=== PATIENT | male | born 1970 | race Caucasian/White ===

== ENCOUNTER 2017-09-02 18:38 | Inpatient (IN) | payer BC, OTHER ==
[~2017-09-02] VITALS: Ht 175.3 cm; Wt 66.2 kg
[~2017-09-02 18:38] MED LIST: ACETAMINOP325 MG/10 PO; FLOVENT INH; HYDROCHLOROTH12.5 M1 PO; LABETALOL PO; LIBRIUM25 M1; LORAZEPAM PO; REGLAN10 MG PO; TYLENOL500 MG PO; VALIUM5 MG PO; VENTOLIN INH; Z ALBUTEROL SULFAT PO; Z FLUOXETINE HCL PO; Z.0.ALLOPURINOL300 M PO; Z.0.FOLIC ACID1 MG PO; Z.0.LISINOPRIL40 MG PO; Z.0.LOPRESSOR100 MG PO; Z.0.SERTRALINE HCL10 PO; Z.0.VICODIN 5-5001 E PO; [UNRECOGNIZED DRUG - OTHER] PO; [UNRECOGNIZED DRUG - OTHER] PO
[2017-09-02] MEDS ORDERED: ONDANSETRON HCL INJ 2 MG/ML VIAL IV STA (18:43)
[2017-09-02] MEDS ORDERED: SODIUM CHLORIDE 0.9% 1000ML 1,000 ML IV STA (18:43)
[2017-09-02] MEDS ORDERED: MORPHINE SULFATE 4 MG/ML SYR IV STA (18:43)
[2017-09-02 20:27] LABS: BASOPHILS # (AUTO) 0.1 (0.0-0.1); BASOPHILS % 1.6 % (0.0-1.0); EOSINOPHILS # (AUTO) 0.1 (0.0-0.4); EOSINOPHILS % 2.1 % (0.0-6.0); HEMOGLOBIN 12.8 g/dL (14.0-18.0); LYMPHOCYTES # (AUTO) 1.3 (1.0-3.2); MEAN CORPUSCULAR HEMOGLOBIN 34.4 pg (28-32); MEAN CORPUSCULAR HGB CONC 36.6 g/dL (31-35); MEAN CORPUSCULAR VOLUME 94.1 fL (81-99); MONOCYTES # (AUTO) 0.6 (0.2-0.8); MONOCYTES % 11.3 % (4.4-11.3); NEUTROPHILS # (AUTO) 2.8 (2.1-6.9); NEUTROPHILS % 58.6 % (38.7-80.0); PLATELET COUNT 197 x10e3/uL (140-360); RED BLOOD COUNT 3.72 x10e6/uL (4.3-5.7); RED CELL DISTRIBUTION WIDTH 13.2 % (11.7-14.4)
[2017-09-02 20:29] LABS: BILIRUBIN,URINE NEGATIVE (NEGATIVE); CLARITY,URINE CLEAR (CLEAR); COLOR,URINE YELLOW (YELLOW); KETONES,URINE NEGATIVE (NEGATIVE); LEUKOCYTE ESTERASE ,URINE NEGATIVE (NEGATIVE); NITRITE,URINE NEGATIVE (NEGATIVE); PROTEIN,URINE DIPSTICK NEGATIVE (NEGATIVE); URINE UROBILINOGEN 0.2 mg/dL (0.2 - 1)
[2017-09-02 20:46] LABS: ALANINE AMINOTRANSFERASE 54 IU/L (0-55); ALBUMIN 3.9 g/dL (3.5-5.0); ALBUMIN/GLOBULIN RATIO 0.8 (0.8-2.0); ALKALINE PHOSPHATASE 198 IU/L (40-150); ANION GAP 18.8 mmol/L (8-16); BLOOD UREA NITROGEN < 5 mg/dL (7-26); CALCIUM 9.3 mg/dL (8.4-10.2); CARBON DIOXIDE 25 mmol/L (22-29); CHLORIDE 89 mmol/L (98-107); CREATINE KINASE 159 IU/L (30-200); CREATININE, SERUM 0.75 mg/dL (0.72-1.25); EST GLOMERULAR FILTRATION RATE > 60 ML/MIN (60-); GLUCOSE 87 mg/dL (74-118); POTASSIUM 3.8 mmol/L (3.5-5.1); SODIUM 129 mmol/L (136-145)
[2017-09-02 20:48] LABS: BUN/CREATININE RATIO 7 (6-25)
[2017-09-02 20:53] LABS: RBC,URINE 0-5 /HPF (0-5); WBC,URINE (MAN) 0-5 /HPF (0-5)
[2017-09-02 21:09] LABS: LIPASE 1307 U/L (8-78)
[2017-09-02] MEDS ORDERED: SODIUM CHLORIDE 0.9% 50ML 50 ML ONE (22:35)
[2017-09-02] MEDS ORDERED: IOPAMIDOL 370 MG/ML 200 ML INFUS..BTL INJ ONE (22:35)
--- NOTE | 2017-09-02 22:42 | Diagnostic Imaging Report ---
EXAM: CHEST SINGLE (NOT PORTABLE), AP 1 view DATE: 09/02/2017 6:43 PM Time stamp on exam: 2217 hours INDICATION: Abdominal pain, shortness of breath COMPARISON: None FINDINGS: LINES/TUBES: None LUNGS: No consolidations or edema. PLEURA: No effusions or pneumothorax. HEART AND MEDIASTINUM: Normal size and contour. BONES AND SOFT TISSUES: No acute findings. Multiple old left-sided rib fractures. IMPRESSION: No acute thoracic abnormality. Signed by: Dr. Ellen Henriquez M.D. on 09/02/2017 10:38 PM
--- NOTE | 2017-09-02 22:49 | Diagnostic Imaging Report ---
EXAM: CT ABDOMEN AND PELVIS with IV CONTRAST DATE: 09/02/2017 6:43 PM Time stamp on Exam: 2134 hours INDICATION: Mid abdominal pain COMPARISON: None TECHNIQUE: The abdomen and pelvis were scanned using a multidetector helical scanner. Coronal and sagittal reformations were obtained. Routine protocol performed. IV Contrast: 100 cc Isovue-370 Oral Contrast: Water CTDIvol has been reviewed. It is below the limits set by the Radiation Protocol Committee (RPC). FINDINGS: LOWER THORAX: No consolidations LIVER: No masses BILIARY: The gallbladder is unremarkable. No ductal dilation. SPLEEN: No masses PANCREAS: There are coarse calcifications in the pancreatic head. Generalized pancreatic atrophy. Pancreatic duct dilation up to 4 mm. No peripancreatic inflammation. ADRENALS: No nodules KIDNEYS: Symmetric perfusion. No enhancing masses. No hydronephrosis. Nonspecific mild bilateral perinephric fat stranding. GI TRACT: No distention, wall thickening or evidence of obstruction. 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 Surgical changes of the right colon. VESSELS: Unremarkable PERITONEUM/RETROPERITONEUM: No free air or fluid LYMPH NODES: No lymphadenopathy REPRODUCTIVE ORGANS: Unremarkable BLADDER: Unremarkable SOFT TISSUES: Surgical changes of anterior abdominal hernia repair. BONES: No suspicious bone lesions. IMPRESSION: Coarse calcifications in the pancreatic head, generalized pancreas atrophy and dilation of the pancreatic duct are findings most likely secondary to chronic pancreatitis. Recommend comparison to patient's prior CT images not available at this time as pancreatic head mass could have a similar appearance. There is no acute peripancreatic inflammation or abnormal fluid collection. Signed by: Dr. Ellen Henriquez M.D. on 09/02/2017 10:45 PM
[2017-09-02] MEDS ORDERED: PANTOPRAZOLE 40 MG 10ML VIAL IV STA (23:36)
[2017-09-02] MEDS ORDERED: ONDANSETRON HCL INJ 2 MG/ML VIAL IV PRN (23:45)
[2017-09-02] MEDS ORDERED: HYDROMORPHONE 1MG/1ML INJ IV PRN (23:45)
[2017-09-02] MEDS ORDERED: LORAZEPAM INJ 2 MG/ML VIAL IV PRN (23:45)
[2017-09-03] VITALS (10 sets, daily range): BP systolic 144–198; BP diastolic 88–123
[2017-09-03] MEDS: SODIUM CHLORIDE 0.9% 1000ML 1,000 ML IV SCH ×6 (05:26→21:56)
[2017-09-03] MEDS: DIAZEPAM INJ 5 MG/ML 2 ML IV PRN ×2 (05:26→16:59)
[2017-09-03] MEDS: PANTOPRAZOLE 40 MG 10ML VIAL IV SCH ×2 (09:00→16:07)
[2017-09-03 09:40] LABS: BASOPHILS % 0.9 % (0.0-1.0); EOSINOPHILS # (AUTO) 0.1 (0.0-0.4); EOSINOPHILS % 1.6 % (0.0-6.0); HEMATOCRIT 34.2 % (38.2-49.6); HEMOGLOBIN 12.4 g/dL (14.0-18.0); LYMPHOCYTES # (AUTO) 0.6 (1.0-3.2); LYMPHOCYTES % 14.5 % (18.0-39.1); MEAN CORPUSCULAR HEMOGLOBIN 34.1 pg (28-32); MEAN CORPUSCULAR HGB CONC 36.3 g/dL (31-35); MONOCYTES # (AUTO) 0.5 (0.2-0.8); MONOCYTES % 10.9 % (4.4-11.3); NEUTROPHILS # (AUTO) 3.2 (2.1-6.9); NEUTROPHILS % 71.9 % (38.7-80.0); PLATELET COUNT 165 x10e3/uL (140-360); RED BLOOD COUNT 3.64 x10e6/uL (4.3-5.7); RED CELL DISTRIBUTION WIDTH 13.5 % (11.7-14.4)
[2017-09-03 10:02] LABS: ALANINE AMINOTRANSFERASE 52 IU/L (0-55); ALBUMIN 3.5 g/dL (3.5-5.0); ALBUMIN/GLOBULIN RATIO 0.8 (0.8-2.0); ALKALINE PHOSPHATASE 176 IU/L (40-150); AMYLASE 233 U/L (25-125); ANION GAP 17.8 mmol/L (8-16); BLOOD UREA NITROGEN < 5 mg/dL (7-26); CALCIUM 9.1 mg/dL (8.4-10.2); CARBON DIOXIDE 24 mmol/L (22-29); CHLORIDE 96 mmol/L (98-107); CREATININE, SERUM 0.64 mg/dL (0.72-1.25); EST GLOMERULAR FILTRATION RATE > 60 ML/MIN (60-); GLUCOSE 90 mg/dL (74-118); LIPASE 889 U/L (8-78); POTASSIUM 3.8 mmol/L (3.5-5.1); SODIUM 134 mmol/L (136-145)
[2017-09-03 10:04] LABS: BUN/CREATININE RATIO 8 (6-25)
[2017-09-03] MEDS: HYDRALAZINE HCL 20 MG/ML VIAL IV PRN ×2 (12:00→20:00)
[2017-09-03] MEDS ORDERED: GADOBENATE DIMEGLUMINE 1 ML IV ONE (15:45)
[2017-09-03] MEDS: CHLORDIAZEPOXIDE HCL 25 MG CAP PO SCH (18:30)
[2017-09-04] MEDS: CHLORDIAZEPOXIDE HCL 25 MG CAP PO SCH ×4 (00:26→17:16)
[2017-09-04] MEDS: SODIUM CHLORIDE 0.9% 1000ML 1,000 ML IV SCH ×6 (01:04→21:01)
[2017-09-04] MEDS: HYDRALAZINE HCL 20 MG/ML VIAL IV PRN ×3 (01:06→21:01)
[2017-09-04 01:36] VITALS: BP 152/10
[2017-09-04 06:26] LABS: BASOPHILS % 0.8 % (0.0-1.0); EOSINOPHILS # (AUTO) 0.1 (0.0-0.4); EOSINOPHILS % 2.4 % (0.0-6.0); HEMATOCRIT 32.5 % (38.2-49.6); HEMOGLOBIN 11.4 g/dL (14.0-18.0); LYMPHOCYTES # (AUTO) 0.9 (1.0-3.2); MEAN CORPUSCULAR HEMOGLOBIN 34.2 pg (28-32); MEAN CORPUSCULAR HGB CONC 35.1 g/dL (31-35); MEAN CORPUSCULAR VOLUME 97.6 fL (81-99); MONOCYTES # (AUTO) 0.4 (0.2-0.8); MONOCYTES % 10.8 % (4.4-11.3); NEUTROPHILS # (AUTO) 2.3 (2.1-6.9); NEUTROPHILS % 62.2 % (38.7-80.0); PLATELET COUNT 157 x10e3/uL (140-360); RED BLOOD COUNT 3.33 x10e6/uL (4.3-5.7); RED CELL DISTRIBUTION WIDTH 13.9 % (11.7-14.4)
[2017-09-04 07:00] LABS: ALANINE AMINOTRANSFERASE 38 IU/L (0-55); ALBUMIN 3.1 g/dL (3.5-5.0); ALBUMIN/GLOBULIN RATIO 0.9 (0.8-2.0); ALKALINE PHOSPHATASE 147 IU/L (40-150); AMYLASE 89 U/L (25-125); ANION GAP 15.6 mmol/L (8-16); BLOOD UREA NITROGEN < 5 mg/dL (7-26); CALCIUM 8.6 mg/dL (8.4-10.2); CARBON DIOXIDE 19 mmol/L (22-29); CHLORIDE 103 mmol/L (98-107); EST GLOMERULAR FILTRATION RATE > 60 ML/MIN (60-); GLUCOSE 83 mg/dL (74-118); LIPASE 184 U/L (8-78); POTASSIUM 3.6 mmol/L (3.5-5.1); SODIUM 134 mmol/L (136-145)
[2017-09-04 07:09] VITALS: BP 135/95
[2017-09-04 07:12] LABS: BUN/CREATININE RATIO 8 (6-25)
[2017-09-04 08:00] VITALS: BP 151/87
[2017-09-04] MEDS: PANTOPRAZOLE 40 MG 10ML VIAL IV SCH ×2 (08:03→17:16)
[2017-09-04 12:00] VITALS: BP 160/109
[2017-09-04 16:00] VITALS: BP 138/81
[2017-09-04 20:00] VITALS: BP 157/103
[2017-09-04 22:54] LABS: FERRITIN 948.02 ng/mL (21.81-274.66)
[2017-09-05] VITALS (7 sets, daily range): BP systolic 136–167; BP diastolic 92–110
[2017-09-05] MEDS: SODIUM CHLORIDE 0.9% 1000ML 1,000 ML IV SCH ×7 (00:27→15:00)
[2017-09-05] MEDS: CHLORDIAZEPOXIDE HCL 25 MG CAP PO SCH ×4 (00:27→17:02)
[2017-09-05 06:48] LABS: ALANINE AMINOTRANSFERASE 50 IU/L (0-55); ALBUMIN 3.3 g/dL (3.5-5.0); ALBUMIN/GLOBULIN RATIO 0.8 (0.8-2.0); ALKALINE PHOSPHATASE 154 IU/L (40-150); AMYLASE 67 U/L (25-125); ANION GAP 18.5 mmol/L (8-16); BLOOD UREA NITROGEN < 5 mg/dL (7-26); CALCIUM 8.9 mg/dL (8.4-10.2); CARBON DIOXIDE 16 mmol/L (22-29); CHLORIDE 103 mmol/L (98-107); CREATININE, SERUM 0.66 mg/dL (0.72-1.25); EST GLOMERULAR FILTRATION RATE > 60 ML/MIN (60-); GLUCOSE 74 mg/dL (74-118); LIPASE 104 U/L (8-78); POTASSIUM 3.5 mmol/L (3.5-5.1); SODIUM 134 mmol/L (136-145)
[2017-09-05 06:49] LABS: BUN/CREATININE RATIO 8 (6-25)
[2017-09-05] MEDS: PANTOPRAZOLE 40 MG 10ML VIAL IV SCH ×2 (09:15→16:48)
[2017-09-06] VITALS: BP 162/104
[2017-09-06] MEDS: CHLORDIAZEPOXIDE HCL 25 MG CAP PO SCH ×4 (01:00→18:00)
[2017-09-06] MEDS: HYDRALAZINE HCL 20 MG/ML VIAL IV PRN (01:03)
[2017-09-06] MEDS: SODIUM CHLORIDE 0.9% 1000ML 1,000 ML IV SCH ×5 (01:33→14:53)
[2017-09-06 04:00] VITALS: BP 142/97
[2017-09-06 06:53] LABS: AMYLASE 53 U/L (25-125); LIPASE 62 U/L (8-78)
[2017-09-06 08:00] VITALS: BP 130/90
[2017-09-06] MEDS: PANTOPRAZOLE 40 MG 10ML VIAL IV SCH ×2 (09:00→17:00)
[2017-09-06 12:00] VITALS: BP 145/102
[2017-09-06 16:00] VITALS: BP 139/104
[2017-09-06] MEDS ORDERED: LOSARTAN POTASS25 MG PO (17:35)
[2017-09-06] MEDS ORDERED: CLONIDINE HCL 0.2 MG TAB PO ONE (18:00)
== END 2017-09-06 19:56 | disposition home or self-care (01) | DRG 439 ==
LOC: ER 18:38 → ERHOLD 09-03 00:59 → MED/SURG2 09-03 03:55
PROVIDERS: ADMIT Internal Medicine; ATTEND Internal Medicine
DX: K85.20 Alcohol induced acute pancreatitis without necrosis or infection (principal); F10.231 Alcohol dependence with withdrawal delirium; E87.1 Hypo-osmolality and hyponatremia; R10.9 Unspecified abdominal pain; I10 Essential (primary) hypertension; J45.909 Unspecified asthma, uncomplicated; Z28.21 Immunization not carried out because of patient refusal; F17.290 Nicotine dependence, other tobacco product, uncomplicated
CPT/HCPCS: 36415; 71010; 74177; 74183; 80053; 81001; 82150; 82550; 82553; 82728; 83540; 83690; 84466; 84484; 85025; 85045; 86301; 87086; 99284; J0360; J3360; J7030; Q9967

== ENCOUNTER → 2017-10-11 | Outpatient (CLI) | payer BC ==
[~2017-10-11] MED LIST changes: +GADOBENATE DIMEGLUMINE 1 ML IV ONE; +LOSARTAN POTASS25 MG PO
--- NOTE | 2017-10-11 18:17 | Diagnostic Imaging Report ---
EXAM: MRI of the abdomen with and without contrast with MRCP INDICATION: Chronic pancreatitis.. COMPARISON: MRI abdomen with MRCP dated . Correlation with CT abdomen dated 09/02/17. TECHNIQUE: Multiplanar and multisequence imaging was performed of the abdomen. T1 and T2-weighted images were obtained with and without contrast. T1-weighted in and [id number] , Dynamic, post gadolinium T1-weighted spoiled gradient echo scans. 14 cc of MultiHance were administered intravenously. M.R.C.P. technique: Multiplanar, multisequence MRCP was performed, with sequences including coronal turbo spin-echo T1-weighted scans, [facility] MRCP scans, coronal spin, coronal MPR 2, SMRCP 3D HR, [facility] MRCP MATHEWS. Discussion: LOWER THORAX: Unremarkable. HEPATOBILIARY: No focal hepatic lesions. No biliary ductal dilation. GALLBLADDER: No radio-opaque stones or sludge. No wall thickening. SPLEEN: No splenomegaly. PANCREAS: No focal enhancing masses. Redemonstration of diffuse pancreatic atrophy. Pancreatic head calcifications identified on prior CT examination are not well seen with this modality. There is mild dilatation of the main pancreatic duct particularly in the neck and proximal body of to 4 mm, unchanged. The main hepatic duct appears duplicated on postcontrast scans as seen on image 30 series 100, which is probably artifactual. ADRENALS: No adrenal nodules. KIDNEYS/URETERS: Kidneys enhance symmetrically. No hydronephrosis. No cystic or solid mass lesions. No stones. Bilateral perinephric stranding is a nonspecific finding. GI TRACT: No abnormal distention, wall thickening, or evidence of bowel obstruction. . LYMPH NODES: No lymphadenopathy. VESSELS: Unremarkable. PERITONEUM / RETROPERITONEUM: No free air or fluid. BONES: No suspicious abnormality. No acute abnormality. SOFT TISSUES: Unremarkable. IMPRESSION: 1. No significant interval change. Findings again suggestive of chronic pancreatitis involving the pancreatic head. No enhancing pancreatic head mass. 2. MRCP sequences are limited, however, demonstrate no gross abnormality involving the, hepatic duct as suspected on prior examination. Signed by: Dr. Gurjit Bell M.D. on 10/11/2017 6:08 PM
== END ==
LOC: MRI 15:25
PROVIDERS: ATTEND Internal Medicine Gastroenterology
DX: K86.1 Other chronic pancreatitis (principal)
CPT/HCPCS: 74183

== ENCOUNTER → 2018-01-01 | Outpatient (CLI) | payer BC ==
[~2018-01-01] MED LIST changes: -GADOBENATE DIMEGLUMINE 1 ML IV ONE
--- NOTE | 2018-01-01 21:21 | Diagnostic Imaging Report ---
EXAMINATION: MRI of the lumbar spine and sacrum without contrast HISTORY: Left lower extremity pain when bearing weight on the left foot for the last 4 weeks COMPARISON: Abdomen CT on 09/02/2017 TECHNIQUE: Lumbar spine: Sagittal T1, T2, STIR; axial T2 and proton density. Sacrum: Sagittal T2; axial T1, proton density; coronal T1, STIR, proton density. Post-contrast axial, coronal T1. FINDINGS: It is assumed that there are 5 lumbar vertebrae. Curvature/Alignment: Normal lordosis. Vertebrae: No evidence of recent fracture, infection, or neoplasm. Conus: Normal, terminating at L1-L2 Cauda equina: Unremarkable. Lower thoracic: Unremarkable. Paraspinal soft tissues: Moderate atrophy of the paraspinal lumbosacral muscles. Partially visualized atrophic changes of the pancreatic head and thickened urinary bladder wall. Degenerative changes: L1-L2: Unremarkable. L2-L3: Unremarkable. L3-L4: Mild asymmetric to the right disc bulge without canal or foraminal stenoses. L4-L5: Large approximately 8.5 mm AP diameter and 1.2 cm in length left ventricular inferiorly migrated disc extrusion, which is compressing the left ventral thecal sac and the traversing left L5 nerve root. L5-S1: Mild symmetric disc bulge with a small millimeter in AP diameter central disc protrusion, bilateral facet hypertrophy. Moderate left and mild right foraminal stenoses. Sacrum: Bones: Normal. No acute fractures, inflammation or neoplasm are seen Soft tissues: Partially visualized mildly thickened urinary bladder wall, which may be related to chronic inflammatory process. Spinal canal and neural foramen: Patent Sacral nerve roots: Unremarkable IMPRESSION: 1. Large left subarticular inferiorly migrated disc herniation at L4-L5 with compression of the the thecal sac and left L5 nerve root, which likely explains the patient's symptoms. 2. Moderate left and mild right degenerative foraminal stenoses at L5-S1. 3. No sacral abnormalities. 4. Partially visualized thickened urinary bladder and atrophic pancreas, please see dictation of abdominal CT on 09/02/2017 carotid detail. Signed by: Dr. Bridget Moreno M.D. on 01/01/2018 9:17 PM
== END ==
LOC: MRI 14:46
PROVIDERS: ATTEND Internal Medicine Critical Care Medicine
DX: M54.5 Low back pain (principal); K85.90 Acute pancreatitis without necrosis or infection, unspecified; F10.20 Alcohol dependence, uncomplicated; I10 Essential (primary) hypertension; J45.20 Mild intermittent asthma, uncomplicated; Z87.891 Personal history of nicotine dependence
CPT/HCPCS: 72148; 72195

== ENCOUNTER 2018-02-06 14:23 | Observation (INO) | payer BC ==
[~2018-02-06] VITALS: Ht 175.3 cm; Wt 67.6 kg
[2018-02-06 14:50] LABS: BASOPHILS # (AUTO) 0.1 (0.0-0.1); BASOPHILS % 0.4 % (0.0-1.0); EOSINOPHILS % 0.3 % (0.0-6.0); HEMOGLOBIN 12.5 g/dL (14.0-18.0); LYMPHOCYTES # (AUTO) 1.3 (1.0-3.2); MEAN CORPUSCULAR HEMOGLOBIN 33.4 pg (28-32); MEAN CORPUSCULAR HGB CONC 36.8 g/dL (31-35); MEAN CORPUSCULAR VOLUME 90.9 fL (81-99); MONOCYTES # (AUTO) 1.2 (0.2-0.8); MONOCYTES % 10.1 % (4.4-11.3); NEUTROPHILS # (AUTO) 8.9 (2.1-6.9); NEUTROPHILS % 77.4 % (38.7-80.0); PLATELET COUNT 162 x10e3/uL (140-360); RED BLOOD COUNT 3.74 x10e6/uL (4.3-5.7); RED CELL DISTRIBUTION WIDTH 12.4 % (11.7-14.4)
[2018-02-06 15:25] LABS: ANION GAP 19.9 mmol/L (8-16); BLOOD UREA NITROGEN 5 mg/dL (7-26); BUN/CREATININE RATIO 6 (6-25); CALCIUM 8.6 mg/dL (8.4-10.2); CARBON DIOXIDE 18 mmol/L (22-29); CHLORIDE 88 mmol/L (98-107); CREATININE, SERUM 0.77 mg/dL (0.72-1.25); EST GLOMERULAR FILTRATION RATE > 60 ML/MIN (60-); GLUCOSE 121 mg/dL (74-118); POTASSIUM 3.9 mmol/L (3.5-5.1); SODIUM 122 mmol/L (136-145)
[2018-02-06] MEDS: SODIUM CHLORIDE 0.9% 1000ML 1,000 ML IV SCH (15:44)
[2018-02-06] MEDS ORDERED: DIAZEPAM 5 MG TAB PO PRN (15:45)
[2018-02-06 15:53] LABS: CREATINE KINASE 21 IU/L (30-200)
[2018-02-06 16:20] LABS: CLARITY,URINE SL CLOUDY (CLEAR); COLOR,URINE YELLOW (YELLOW); LEUKOCYTE ESTERASE ,URINE 2+ (NEGATIVE); NITRITE,URINE NEGATIVE (NEGATIVE)
[2018-02-06 16:21] LABS: BILIRUBIN,URINE NEGATIVE (NEGATIVE); KETONES,URINE NEGATIVE (NEGATIVE); PROTEIN,URINE DIPSTICK NEGATIVE (NEGATIVE); URINE UROBILINOGEN 0.2 mg/dL (0.2 - 1)
[2018-02-06 16:31] LABS: BACTERIA,URINE MANY /HPF; RBC,URINE >50 /HPF (0-5); WBC,URINE (MAN) >50 /HPF (0-5)
[2018-02-06 16:58] VITALS: BP 143/91
[2018-02-06 17:00] VITALS: BP 143/91
[2018-02-06 20:00] VITALS: BP_SYST 147; BP_DIAS 83; BP_DIAS 85
[2018-02-06] MEDS ORDERED: VENTOLIN INH SCH (22:15)
[2018-02-06] MEDS ORDERED: METOCLOPRAMIDE HCL 10 MG TAB PO PRN (22:15)
[2018-02-06] MEDS ORDERED: ALBUTEROL SULFATE HFA 8GM INHALATION AEROSOL INH PRN (22:24)
[2018-02-06] MEDS ORDERED: CEFTRIAXONE SOD 1 GM VIAL IV SCH (22:30)
[2018-02-06 23:37] LABS: CREATINE KINASE 15 IU/L (30-200)
[2018-02-07] VITALS: BP 158/91
[2018-02-07] MEDS: SODIUM CHLORIDE 0.9% 1000ML 1,000 ML IV SCH ×2 (01:20→07:45)
[2018-02-07 04:00] VITALS: BP 144/92
[2018-02-07 06:25] LABS: BASOPHILS % 0.4 % (0.0-1.0); HEMATOCRIT 32.6 % (38.2-49.6); LYMPHOCYTES # (AUTO) 0.8 (1.0-3.2); LYMPHOCYTES % 9.9 % (18.0-39.1); MEAN CORPUSCULAR HGB CONC 36.8 g/dL (31-35); MEAN CORPUSCULAR VOLUME 92.4 fL (81-99); MONOCYTES # (AUTO) 1.1 (0.2-0.8); MONOCYTES % 13.3 % (4.4-11.3); NEUTROPHILS % 75.6 % (38.7-80.0); PLATELET COUNT 132 x10e3/uL (140-360); RED BLOOD COUNT 3.53 x10e6/uL (4.3-5.7); RED CELL DISTRIBUTION WIDTH 12.3 % (11.7-14.4)
[2018-02-07 06:30] LABS: CREATINE KINASE 19 IU/L (30-200)
[2018-02-07 06:38] LABS: ANION GAP 15.7 mmol/L (8-16); BLOOD UREA NITROGEN 7 mg/dL (7-26); BUN/CREATININE RATIO 10 (6-25); CALCIUM 9.1 mg/dL (8.4-10.2); CARBON DIOXIDE 24 mmol/L (22-29); CHLORIDE 96 mmol/L (98-107); EST GLOMERULAR FILTRATION RATE > 60 ML/MIN (60-); GLUCOSE 110 mg/dL (74-118); POTASSIUM 4.7 mmol/L (3.5-5.1); SODIUM 131 mmol/L (136-145)
[2018-02-07 06:54] LABS: MAGNESIUM 1.4 MG/DL (1.3-2.1); PHOSPHORUS 3.2 MG/DL (2.3-4.7)
[2018-02-07] MEDS ORDERED: KEFLEX500 MG PO (07:03)
[2018-02-07 07:14] VITALS: BP 144/92
[2018-02-07] MEDS ORDERED: FAMOTIDINE 20 MG TAB PO SCH (07:30)
[2018-02-07 08:00] VITALS: BP 170/97
[2018-02-07] MEDS ORDERED: LABETALOL HCL 100 MG TAB PO SCH (09:00)
[2018-02-07] MEDS ORDERED: LABETALOL 100 MG PO SCH (09:00)
[2018-02-07] MEDS ORDERED: LOSARTAN POTASSIUM 25 MG TAB PO SCH (09:00)
--- NOTE | 2018-02-08 16:35 | History and Physical ---
DATE OF SERVICE: February 06, 2018 at 2:40 p.m. PRIMARY CARE PHYSICIAN: Dr. Guaman CHIEF COMPLAINT: Abnormal blood work with low sodium. HISTORY OF PRESENT ILLNESS: This is a 47-year-old man asked to come to the hospital by his primary care doctor because of low sodium level. Patient was having routine preoperative labs for disk herniation repair procedure when he was found to have low sodium, sent to the hospital by his doctor. Here, he was found to have a sodium of 122. He is admitted for further evaluation and management. PAST MEDICAL HISTORY: Hypertension, collarbone fracture, colonic perforation status post resection, tobacco dependent, chronic alcoholic pancreatitis, alcoholism with 12 beers per day, hyponatremia, delirium tremens, postoperative ileus, asthma, volvulus status post repair. PAST SURGICAL HISTORY: Colonic perforation repair. ALLERGIES: PER ELECTRONIC MEDICAL RECORD. FAMILY HISTORY/SOCIAL HISTORY: Patient dips tobacco. He drinks alcohol daily. MEDICATIONS: Per electronic medical record. REVIEW OF SYSTEMS: Denies any dizziness, chest pain. PHYSICAL EXAMINATION: VITAL SIGNS: Reviewed. GENERAL APPEARANCE: Tired-appearing man resting in bed. HEENT: Anicteric. Pupils respond to light. No oral lesions. CARDIOVASCULAR: Normal S1 and S2. LUNGS: Moderate breath sounds. ABDOMEN: Soft, nontender, nondistended. EXTREMITIES: No edema or calf tenderness. NEUROLOGICAL: Alert and oriented x3. Moving all extremities. LABS: Reviewed. MEDICATIONS: Reviewed. ASSESSMENT: This is a 47-year-old man. 1. Beer potomania. 2. Hyponatremia. 3. Alcoholism. 4. Disk herniation. 5. Normocytic anemia, mild. 6. Metabolic acidosis. 7. Urinary tract infection. PLAN: 1. Rehydrate patient with normal saline and check sodium level every 8 hours. 2. Use Valium to prevent delirium tremens and alcoholism. 3. Alcohol cessation counseling, social director consultation. 4. Follow sodium level every 8 hours. 5. Utilize sequential compression devices and Pepcid. 6. Follow up urine culture and utilize IV ceftriaxone. Job#: [id number]
--- NOTE | 2018-02-10 14:01 | Discharge Summary ---
PRINCIPAL DIAGNOSES 1. Beer potomania. 2. Hyponatremia. 3. Alcoholism. 4. Disk herniation. 5. Normocytic anemia, mild. 6. Metabolic acidosis. 7. Urinary tract infection. SECONDARY DIAGNOSIS: Alcohol abuse. CHIEF COMPLAINT: Abnormal lab work. HISTORY OF PRESENT ILLNESS: A 47-year-old man with abnormal work. Please refer to the H\T\P for further details. HOSPITAL COURSE: Patient was found to have beer potomania with hyponatremia and severe alcoholism. Counseled on alcohol cessation and reduction and cessation. Patient rehydrated. Sodium improved. He had a disk herniation and normocytic anemia, mild. He will follow up outpatient. He had a urinary tract infection and was treated with antibiotics. Patient was discharged home. The patient was treated with Valium during hospitalization to prevent delirium tremens. DISCHARGE MEDICATIONS: Per electronic medical records. FOLLOWUP: Primary care doctor in 1 week. CONDITION ON DISCHARGE: Stable and improving. DISCHARGE LOCATION: Home. CAMI TIWARI MD Job#: [id number] EV
== END 2018-02-07 10:16 | disposition home or self-care (01) ==
LOC: ER 14:23 → ERHOLD 15:48 → IMCU 16:47
PROVIDERS: ADMIT Internal Medicine; ATTEND Internal Medicine
DX: F10.288 Alcohol dependence with other alcohol-induced disorder (principal); E87.1 Hypo-osmolality and hyponatremia; D64.9 Anemia, unspecified; E87.2 Acidosis; N39.0 Urinary tract infection, site not specified; M51.26 Other intervertebral disc displacement, lumbar region
CPT/HCPCS: 36415 ×2; 80048 ×2; 80320; 81001; 82550 ×2; 82553 ×2; 83735; 84100; 84484 ×2; 85025 ×2; 87040; 87086; 87186; 93005; 99284; G0378 ×2; J0696; J7030 ×2

== ENCOUNTER 2018-05-08 17:36 | Inpatient (IN) | payer BC ==
[~2018-05-08] VITALS: Ht 175.3 cm; Wt 69.9 kg
[~2018-05-08 17:36] MED LIST changes: +KEFLEX500 MG PO
[2018-05-08] MEDS ORDERED: CEFOXITIN 1GM/ NS 50ML 50 ML IV STA (18:07)
[2018-05-08] MEDS ORDERED: SODIUM CHLORIDE 0.9% 1000ML 1,000 ML IV STA (18:07)
[2018-05-08] MEDS ORDERED: CHLORDIAZEPOXIDE HCL 25 MG CAP PO ONE ×2 (18:15→19:15)
[2018-05-08 18:28] LABS: BASOPHILS % 0.2 % (0.0-1.0); HEMATOCRIT 39.9 % (38.2-49.6); HEMOGLOBIN 14.9 g/dL (14.0-18.0); LYMPHOCYTES # (AUTO) 0.2 (1.0-3.2); LYMPHOCYTES % 2.1 % (18.0-39.1); MEAN CORPUSCULAR HEMOGLOBIN 34.7 pg (28-32); MEAN CORPUSCULAR HGB CONC 37.3 g/dL (31-35); MEAN CORPUSCULAR VOLUME 92.8 fL (81-99); MONOCYTES # (AUTO) 0.7 (0.2-0.8); MONOCYTES % 6.4 % (4.4-11.3); NEUTROPHILS # (AUTO) 10.4 (2.1-6.9); NEUTROPHILS % 90.8 % (38.7-80.0); PLATELET COUNT 158 x10e3/uL (140-360); RED CELL DISTRIBUTION WIDTH 12.5 % (11.7-14.4)
[2018-05-08] MEDS ORDERED: MULTIVITAMINS- 12 INJECTION 10 ML, FOLIC ACID MDV 5 MG, THIAMINE HCL INJ 100 MG in SODI... IV ONE ×2 (18:30→18:45)
[2018-05-08 18:32] LABS: CLARITY,URINE CLOUDY (CLEAR); COLOR,URINE YELLOW (YELLOW)
[2018-05-08 18:33] LABS: BILIRUBIN,URINE 1+ (NEGATIVE); KETONES,URINE 1+ (NEGATIVE); LEUKOCYTE ESTERASE ,URINE 2+ (NEGATIVE); NITRITE,URINE POSITIVE (NEGATIVE); PROTEIN,URINE DIPSTICK 2+ (NEGATIVE); URINE UROBILINOGEN 1 mg/dL (0.2 - 1)
[2018-05-08 18:44] LABS: AMORPHOUS SEDIMENT,URINE MODERATE (FEW); BACTERIA,URINE MANY /HPF; WBC,URINE (MAN) 21-50 /HPF (0-5)
[2018-05-08 18:46] LABS: ALANINE AMINOTRANSFERASE 88 IU/L (0-55); ALBUMIN 4.1 g/dL (3.5-5.0); ALBUMIN/GLOBULIN RATIO 0.9 (0.8-2.0); ALKALINE PHOSPHATASE 181 IU/L (40-150); BLOOD UREA NITROGEN 7 mg/dL (7-26); BUN/CREATININE RATIO 6 (6-25); CALCIUM 10.1 mg/dL (8.4-10.2); CARBON DIOXIDE 19 mmol/L (22-29); CHLORIDE 89 mmol/L (98-107); CREATININE, SERUM 1.12 mg/dL (0.72-1.25); EST GLOMERULAR FILTRATION RATE > 60 ML/MIN (60-); GLUCOSE 160 mg/dL (74-118); LIPASE 17 U/L (8-78); SODIUM 128 mmol/L (136-145)
[2018-05-08] MEDS ORDERED: IOPAMIDOL 370 MG/ML 200 ML INFUS..BTL INJ ONE ×2 (19:31→20:10)
[2018-05-08] MEDS ORDERED: SODIUM CHLORIDE 0.9% 50ML 50 ML ONE ×2 (19:31→20:10)
[2018-05-08] MEDS ORDERED: ATENOLOL50 MG PO (20:02)
[2018-05-08] MEDS ORDERED: METOPROLOL TARTRATE INJ 1 MG/ML VIAL ONE (20:10)
[2018-05-08] MEDS ORDERED: METOPROLOL TARTRATE INJ 1 MG/ML VIAL IV ONE (20:15)
--- NOTE | 2018-05-08 20:17 | Diagnostic Imaging Report ---
CT Abdomen And Pelvis with Intravenous Contrast INDICATION: Abdominal pain, nausea, vomiting, diarrhea, history of chronic pancreatitis TECHNIQUE: Thin collimation axial images obtained from the diaphragm to the level of the pubic symphysis following the uneventful administration of 100 cc of low osmolar, nonionic intravenous contrast. RADIATION DOSE: Total DLP: 221.14 mGy*cm Estimated effective dose: (DLP x 0.015 x size factor) mSv CTDIvol has been reviewed. It is below the limits set by the Radiation Protocol Committee (RPC). COMPARISON: CT abdomen/pelvis 09/02/2017. ABDOMEN FINDINGS: Lung Bases: Clear. The visualized portions of the mediastinum are normal.. Liver: Decreased attenuation consistent with steatosis. The right lobe measures 15 cm in craniocaudal dimension. No evidence for mass. Gallbladder: Present and appears normal. No biliary ductal dilatation. Pancreas: Multiple calcifications in the pancreas head are stable consistent with chronic pancreatitis. The pancreas parenchyma is diffusely atrophic. The main pancreas duct in the body is mildly distended to 5 mm. No pancreas mass. Spleen: Normal in size. No evidence of mass.. Adrenal Glands: No evidence for mass. Kidneys/ureters: Right: Diminished enhancement compared to the left kidney. Extensive perinephric inflammation. There is mucosal hyperemia of the renal collecting system and right ureter. The right ureter is distended throughout its course. There is no evidence of intraluminal calculus. There is prominent soft tissue in the distal right ureter at the UVJ. No perinephric or intracortical fluid collection. No dilatation of the collecting system. Left: Normal enhancement. Mild perinephric inflammation. No collecting system or ureteral dilatation.. No mass. Lymph Nodes: No lymphadenopathy. Aorta: Normal in diameter with scattered calcifications PELVIS FINDINGS: Bowel: Stomach: Normal. Small Bowel: Normal in caliber with normal wall thickness. Large Bowel: Postoperative changes of the right colon are stable. Semisolid stool in the proximal large bowel. No mural thickening or pericolonic inflammation. Bladder: Very distended. No mural thickening or intraluminal mass or calculus. No perivesicular inflammation. No free fluid or fluid collection. Bones: Mild degenerative changes of the lower lumbar spine. Wedge compression deformity of T9 is age-indeterminate. No retropulsed bone fragments. Soft tissues: Unremarkable. IMPRESSION: 1. Right perinephric inflammation and distention of the right ureter with ureteral inflammation. Findings are suggestive of acute pyelonephritis. There is prominent soft tissue at the right UPJ. No obstructing calculus is identified. A recently passed stone cannot be excluded. Please correlate with urinalysis/urine culture. Recommend repeat imaging with CT urogram to exclude mass in the distal right ureter. Mild left perinephric inflammation may be the result of acute pyelonephritis. 2. Steatosis. Chronic pancreatitis. Stable postoperative changes of the bowel without obstruction. 3. Age indeterminate wedge compression deformity of T9. Signed by: Dr. Ander Mendoza MD on 05/08/2018 8:13 PM
[2018-05-08] MEDS ORDERED: ACETAMINOPHEN 1000 MG/100 ML IV ONE (20:46)
[2018-05-08] MEDS: CEFTRIAXONE SOD 1 GM VIAL IV SCH (21:12)
[2018-05-08] MEDS ORDERED: CEFTRIAXONE SOD 1 GM VIAL ONE (21:12)
[2018-05-08] MEDS ORDERED: ACETAMINOPHEN 1000 MG/100 ML IV PRN (21:15)
[2018-05-08] MEDS ORDERED: ONDANSETRON HCL INJ 2 MG/ML VIAL IV PRN (21:15)
[2018-05-08] MEDS ORDERED: HYDROMORPHONE 1MG/1ML INJ IV PRN (21:15)
[2018-05-08] MEDS: SODIUM CHLORIDE 0.9% 1000ML 1,000 ML IV SCH (22:20)
--- NOTE | 2018-05-08 22:57 | Consultation ---
DATE OF CONSULTATION: May 08, 2018 REASONS FOR CONSULT 1. Acute alcohol dependence. 2. Chronic alcoholic pancreatitis, severe. HISTORY OF PRESENTING ILLNESS: A 47-year-old male, who has severe alcohol dependence. He started drinking since this morning. He started developing shakes; therefore, his decided to bring him to the emergency room. Here, he is complaining of some midepigastric pain. No associated nausea. Blood alcohol level was less than 10. Liver enzymes abnormal consistent with alcoholic liver disease. His amylase, lipase level was normal. CT scan showed chronic calcific pancreatitis along with some right perinephric inflammation suggestive of acute pyelonephritis. GI is being consulted to assist in the management of chronic pancreatitis and alcohol dependence. REVIEW OF SYSTEMS: Twelve-point system reviewed. Symptomatology is limited as per HPI. PAST MEDICAL HISTORY: Hypertension, alcohol dependence, chronic pancreatitis, asthma. PAST SURGICAL HISTORY: Colonic perforation requiring exploratory laparotomy with partial colectomy. FAMILY HISTORY: Negative for any GI or ICT HELP DESK OFFICER malignancies. SOCIAL HISTORY: Drinks several cans of beer every day. No smoking, no illicit drug use. ALLERGIES: SULFA. HOME MEDICATIONS: Atenolol, Flovent. INPATIENT MEDICATION: As per MAR. PHYSICAL EXAMINATION VITAL SIGNS: Temperature 101.8, pulse 99, respiration 18, blood pressure 138/96, oxygen saturation 96% on room air. GENERAL: Not in any acute distress, but very anxious, shaky, tremulous. HEENT: Oral mucosa is moist. Mildly icteric sclerae. CVS: S1, S2 regular with a 3/6 flow murmur. LUNGS: Bilaterally grossly clear with poor inspiratory efforts. ABDOMEN: Soft, nondistended, mild epigastric tenderness on deep palpation without rebound rigidity or guarding positive bowel sounds. EXTREMITIES: Warm. No leg edema. LABORATORY DATA: Sodium 138, potassium 4.0, chloride 89, bicarb 19, BUN 7, creatinine 1.12, glucose 160. Liver enzymes showed total bilirubin 1.7, AST 162, ALT 88, alkaline phosphatase 181. WBC 11.42, hemoglobin 14.9, hematocrit 39.9, MCV 92.8, platelet count 158,000. Urinalysis positive for UTI with leukocyte esterase 2+, RBCs 11 to 20, WBC [address] of the abdomen and pelvis with IV contrast showed right perinephric inflammation and distention of the right ureter with ureteral inflammation. Findings are suggestive of acute pyelonephritis. There is a prominent soft tissue at the right UPJ. No obstructing calculus is identified. A recently passed stone cannot be excluded. Please correlate with the urinalysis/urine culture. Recommend repeat imaging with CT urogram to exclude mass in the distal right ureter. 1. Mild left perinephric inflammation maybe a result of acute pyelonephritis. 2. Steatosis of the liver. 3. Chronic pancreatitis. Stable postoperative changes of the bowel without obstruction. 4. Age-indeterminate wedge compression deformity of T9. IMPRESSIONS 1. Alcohol dependence, is going into alcohol withdrawal with a possible impending delirium tremens. 2. Chronic pancreatitis. 3. Pyelonephritis. PLAN: Agree to transfer the patient in the ICU. IV fluids. CIWA protocol, Librium, banana bag, antibiotic for pyelonephritis, urology consult. Supportive care. Alcohol cessation counseling once patient has recovered from withdrawal. I thank, Dr. Jacobson, for allowing me to participate in the care of this patient. Job#: [id number] CQ
[2018-05-08] MEDS: CHLORDIAZEPOXIDE HCL 25 MG CAP PO SCH (23:51)
[2018-05-09] VITALS (56 sets, daily range): BP systolic 135–179; BP diastolic 93–125
[2018-05-09] MEDS: SODIUM CHLORIDE 0.9% 1000ML 1,000 ML IV SCH ×4 (02:00→18:44)
[2018-05-09 05:21] LABS: ALANINE AMINOTRANSFERASE 65 IU/L (0-55); ALBUMIN 3.4 g/dL (3.5-5.0); ALBUMIN/GLOBULIN RATIO 0.8 (0.8-2.0); ALKALINE PHOSPHATASE 137 IU/L (40-150); AMYLASE 39 U/L (25-125); ANION GAP 19.6 mmol/L (8-16); BLOOD UREA NITROGEN 7 mg/dL (7-26); BUN/CREATININE RATIO 8 (6-25); CALCIUM 9.2 mg/dL (8.4-10.2); CARBON DIOXIDE 23 mmol/L (22-29); CHLORIDE 96 mmol/L (98-107); CREATININE, SERUM 0.85 mg/dL (0.72-1.25); EST GLOMERULAR FILTRATION RATE > 60 ML/MIN (60-); GLUCOSE 147 mg/dL (74-118); LIPASE 13 U/L (8-78); POTASSIUM 3.6 mmol/L (3.5-5.1); SODIUM 135 mmol/L (136-145)
[2018-05-09] MEDS: CHLORDIAZEPOXIDE HCL 25 MG CAP PO SCH ×3 (05:43→18:44)
[2018-05-09 06:24] LABS: BASOPHILS % 0.4 % (0.0-1.0); EOSINOPHILS % 0.1 % (0.0-6.0); HEMATOCRIT 37.8 % (38.2-49.6); HEMOGLOBIN 13.5 g/dL (14.0-18.0); LYMPHOCYTES # (AUTO) 0.4 (1.0-3.2); LYMPHOCYTES % 3.4 % (18.0-39.1); MEAN CORPUSCULAR HEMOGLOBIN 34.3 pg (28-32); MEAN CORPUSCULAR HGB CONC 35.7 g/dL (31-35); MEAN CORPUSCULAR VOLUME 95.9 fL (81-99); MONOCYTES # (AUTO) 0.6 (0.2-0.8); MONOCYTES % 5.7 % (4.4-11.3); NEUTROPHILS # (AUTO) 9.6 (2.1-6.9); NEUTROPHILS % 89.5 % (38.7-80.0); PLATELET COUNT 86 x10e3/uL (140-360); RED BLOOD COUNT 3.94 x10e6/uL (4.3-5.7); RED CELL DISTRIBUTION WIDTH 12.6 % (11.7-14.4)
[2018-05-09 09:01] LABS: BAND NEUTROPHILS % (MANUAL) 5 %; EOSINOPHILS % (MANUAL) 1 % (0-7); LYMPHOCYTES % (MANUAL) 8 % (19-48); MONOCYTES % (MANUAL) 5 % (3.4-9.0); NEUTROPHILS % (MANUAL) 79 % (40-74)
[2018-05-09 09:02] LABS: ANISOCYTOSIS SLIGHT; PLATELET ESTIMATE SLIGHTLY DECREASED; PLATELET MORPHOLOGY COMMENT FEW LARGE; RBC MORPHOLOGY COMMENT NORMAL
--- NOTE | 2018-05-09 09:55 | Pre Op History & Physical ---
NO DICTATION, LENGTH 0:15 Job#: [id number] RI
[2018-05-09] MEDS: PANTOPRAZOLE 40 MG 10ML VIAL IV SCH ×2 (10:18→18:44)
--- NOTE | 2018-05-09 10:20 | History and Physical ---
Mr. Shah is a 47-year-old man who has severe alcohol dependence, history of hypertension, asthma, tobacco use, chronic pancreatitis. He came to the emergency room complaining of abdominal pain and back pain. Alcohol level was less than 10. He had recurrent admissions with chronic pancreatitis. Amylase and lipase were normal. CT scan shows chronic pancreatitis and acute pyelonephritis on the right. GI consult and urology consult were requested. PAST MEDICAL HISTORY: He has a history of severe alcohol dependence. He has a history of chronic pancreatitis due to alcohol, hypertension, asthma. PAST SURGICAL HISTORY: He had back surgery, shoulder surgery, hand surgery, and colonic surgery with partial colectomy. SOCIAL HISTORY: He chews tobacco, and he drinks 12 cans of beer a day. ALLERGIES: HE IS ALLERGIC TO SULFA. MEDICATIONS: He is supposed to be on at home Flovent and atenolol. PHYSICAL EXAMINATION VITALS: The patient has been running fever, but right now it is 99.6. Blood pressure is 158/93. Pulse is 107. O2 saturation is 98%. Respiratory rate is 18. HEART: Regular rate. LUNGS: Grossly clear to auscultation. ABDOMEN: Soft. Not distended. Mild epigastric tenderness without rebound. EXTREMITIES: No edema. BLOOD WORK: Potassium 3.6, creatinine 0.85, glucose 147, white count 10.7, hemoglobin 13.5, hematocrit 37.8. Liver enzymes are elevated. Alkaline phosphatase is 137. Amylase and lipase are negative. Urine shows 21-50 white blood cells. Cultures: Urine culture is showing gram-negative bacillus. Abdominal and pelvic CT: 1) Right distention of the ureter with inflammation suggestive of acute pyelonephritis. Prominent soft tissue in the right UPJ. No stone was seen. CT urogram was suggested to rule out a mass in the distal right ureter. 2) Chronic pancreatitis. Stable postoperative changes of the bowel without obstruction. ASSESSMENT AND PLAN 1. Acute pyelonephritis. 2. Urinary tract infection with gram-negative bacillus. 3. Severe alcohol dependence. 4. Alcohol withdrawal symptoms. 5. Abdominal pain. 6. Chronic alcohol pancreatitis. 7. Alcohol abuse. 8. Hypertension. 9. Asthma. 10. Tobacco use. The plan at the present time is to admit the patient to the ICU. Continue IV fluids, Librium, banana bag. Continue antibiotics for pyelonephritis. Psych consult and social media editor evaluation for alcohol cessation counseling and probably some type of inpatient rehab for this problem. Continue to monitor mental status, white count, hemoglobin and hematocrit. We will request a psych consult with Dr. Angel, a urology consult with Dr. Garg, and a GI consult with Dr. Lorenz. All of this was discussed with the patient and as well as nurse at bedside. All questions were answered to satisfaction. I spent more than 45 minutes examining the patient, reviewing the lab results and x-rays, discussing the plan of care with the patient and , also discussing further treatment for his alcohol dependence. The patient apparently in the past has refused inpatient rehab. We are going to try again. I explained to him that all the problems he is having are secondary to his alcoholic problem. He understands. He states he cannot stop drinking. Will try to get psych involved and see if, once he is medically stable, we can transfer to inpatient rehab if he is agreeable. Job#: [id number]
--- NOTE | 2018-05-09 13:05 | Consultation ---
DATE OF CONSULTATION: May 09, 2018 PSYCHIATRIC CONSULT REASON FOR CONSULTATION: For treatment and evaluation of patient's alcohol use and depression. HISTORY OF PRESENTING ILLNESS: Patient is a 47-year-old male who is admitted to ICU because of alcohol withdrawal. Upon evaluation today, patient is found to be lying on his bed. He is alert, awake, oriented to situation. He is very anxious and restless but not agitated or confused. He denies feeling depressed, hopeless or helpless. He does report anxiety. He claims that he is not able to sleep and eat very well. He also reports that he has been drinking alcohol heavily and consumes it every day. He usually uses 12 packs of beer every day. Patient is not sure if he wants to stay sober even after discharge but agrees to get help while he is in an inpatient hospital. PAST PSYCHIATRIC HISTORY: Patient states that he has never been treated by a psychiatrist in the past. He has never attempted any suicide. He drinks alcohol daily and consumes heavy amounts. He denies abusing any recreational drugs. FAMILY HISTORY: Patient's father suffered from psychiatric illness. SOCIAL HISTORY: Patient claims that he lives with his and his in-laws. CURRENT LABS: WBC 10.74, hemoglobin 13.5, hematocrit 37.8, platelets 86. Sodium 135, potassium 3.5, chloride 96, BUN 7, creatinine 0.8. AST 98, ALT 65, alkaline phosphatase 137. CURRENT MEDICINES 1. Rocephin. 2. Librium 50 mg p.o. q.6 h. 3. PRN Dilaudid. MENTAL STATUS EXAMINATION: Patient is a middle-aged male who is currently lying on his bed. He is restless but cooperative. He is alert, awake, oriented to situation. His mood is anxious with a blunted affect. He denies any suicidal or homicidal ideation at present. He denies any abnormal perceptions at present. No delusions are elicited. His thought process is goal-directed. His insight and judgment are limited. IMPRESSION AXIS I 1. Adjustment with mixed mood, depression and anxiety. 2. Alcohol abuse. PLAN OF CARE 1. Discontinue Librium because of his liver problems. 2. Add Ativan 1 mg p.o. q.6 h. and slowly taper off. 3. Add Ativan 1 mg p.o. q.4 h. p.r.n. for alcohol withdrawals. 4. Add Ativan 1 mg IV q.2 h. p.r.n. for alcohol withdrawals. 5. Recommended total abstinence from alcohol and drugs. 6. Supportive therapy during his inpatient stay. Job#: [id number] EV
--- NOTE | 2018-05-09 13:27 | Consultation ---
DATE OF CONSULTATION: May 09, 2018 UROLOGY CONSULTATION REASON FOR CONSULTATION: Complicated urinary tract infection and pyelonephritis. HISTORY OF PRESENT ILLNESS: Yunior Shah is a 47-year-old man who has had previous history of having had a varicocelectomy. The patient reports this was performed at [facility] but does not recall who did it. It was in the remote past. The patient had right sided abdominal pain and had a fever that was high and was maximized at 101.8. He reported to the emergency room where he was evaluated and admitted. The patient denies previous urolithiasis, hematuria, urinary tract infections, and urinary incontinence. He reports inadequate urinary force of stream. PAST MEDICAL AND SURGICAL HISTORY 1. Chronic pancreatitis. 2. Status post bowel resection. 3. Hypertension. 4. Asthma. 5. Severe alcohol dependence. 6. Status post back surgery. 7. Status post left shoulder surgery due to fractured clavicle. 8. Left distal arm surgery due to an injury. 9. Status post right inguinal herniorrhaphy with mesh. 10. Status post varicocelectomy. SOCIAL HISTORY: The patient quit smoking after 10 years at the age of 30, he does chew tobacco. He normally drinks 12 cans of beer per day. He denies drug use. The patient following college, went to work for the [employer] and following discontinuation of that employment, he worked as a associate doctor at [employer]. Currently, he is between jobs. FAMILY HISTORY: Noncontributory to the active urological problems. ALLERGIES: SULFA AND LORAZEPAM. CURRENT MEDICATIONS: Please refer to the MAR. REVIEW OF SYSTEMS: As discussed above in the history of present illness and past medical history, otherwise negative for all other systems. PHYSICAL EXAMINATION GENERAL: Very pleasant, 47-year-old man lying in bed, in no apparent distress. VITAL SIGNS: He is currently afebrile and the vital signs are currently stable. ABDOMEN: Soft, nondistended, and slightly tender in the right flank with minimal costovertebral angle tenderness. The kidneys are not palpable without hepatosplenomegaly. No recent evidence of hernia. There is a deep midline scar. GENITOURINARY: Testes are descended bilaterally. Testes are bilaterally atrophic. I cannot appreciate varicocele in the lying position in the ICU. RECTAL: Digital rectal examination is deferred at the present time. For the remainder of the physical examination systems, please refer to the admission history and physical on the chart. LABORATORY STUDIES: Patient's CT scan of the abdomen and pelvis revealed right sided ureterorrhexis without true hydronephrosis of the actual kidney. There seems to be a soft tissue filling defect in the distal right ureter and there seems to be changes consistent with pyelonephritis of the right renal parenchyma. White blood cell count was 11,420 today, normalized to 10,740, hemoglobin is low at 13.5[place] [address]. Sodium was low at 128 today, it is better but still low at 135. His creatinine is normal at 0.85. Urinalysis is significant for micro hematuria, pyuria, and bacteriuria. ASSESSMENT 1. Leukocytosis. 2. Fever. 3. Urinary tract infection. 4. Microhematuria. 5. Anemia. 6. Hyponatremia. 7. Right hydronephrosis or more importantly ureterorrhexis. 8. Right pyelonephritis. 9. Filling defect in the right distal ureter. 10. Atrophic testes. 11. History of prior varicocele. PLAN 1. Intravenous antibiotics. 2. Await the final urine culture and sensitivity, so we know which antibiotics the patient needs to continue. 3. At some point in time, the patient needs cystoscopy and retrograde. This may be able to be performed electively as an outpatient once the patient is better. Thank you very much for involving us in the care of your patient. We will be happy to follow him along with you, as well as an outpatient. Job#: [id number] MANDA
[2018-05-09] MEDS ORDERED: LORAZEPAM INJ 2 MG/ML VIAL IV PRN (14:30)
[2018-05-09] MEDS ORDERED: MULTIVITAMINS- 12 INJECTION 10 ML, FOLIC ACID MDV 5 MG, THIAMINE HCL INJ 100 MG in SODI... IV ONE (18:45)
--- NOTE | 2018-05-09 20:10 | Progress Note ---
DATE: May 09, 2018 GASTROENTEROLOGY PROGRESS NOTE SUBJECTIVE: Patient continues to be tremulous and shaky. He is on Librium. He is on clear liquid diet, he is tolerating it well. No abdominal pain. REVIEW OF SYSTEMS: Unobtainable at this time. MEDICATIONS: Reviewed as per MAR. PHYSICAL EXAMINATION VITAL SIGNS: Temperature 98.8, pulse 95, respirations 18, blood pressure 147/97, and oxygen saturation 98% on room air. GENERAL: Tremulous and shaky. HEENT: Oral mucosa is moist. Slightly icteric sclerae. ABDOMEN: Soft, nondistended. Mild epigastric tenderness on deep palpation. No rebound, rigidity, or guarding. Positive bowel sound. LABS: Sodium has come up to 135 from 128, potassium 3.6, chloride 96, bicarb 23, BUN 7, and creatinine 0.85. Liver enzymes; total bilirubin 1.6 from 1.7, AST 98 from 162, ALT 65 from 88, alkaline phosphatase 137 from 181. IMPRESSION 1. Alcohol dependence. 2. Alcohol withdrawal. 3. Alcoholic liver disease. 4. Chronic calcific pancreatitis. PLAN: Continue treating alcohol withdrawal with CIWA protocol, but patient is being treated with Librium. Infuse another banana bag. Supplement thiamine and folate. Advance diet to regular food. Patient can be transferred to the floor once tremulousness has resolved. Job#: [id number] MARIPOSA
[2018-05-09] MEDS: CEFTRIAXONE SOD 1 GM VIAL IV SCH (21:15)
[2018-05-10] VITALS (65 sets, daily range): BP systolic 138–184; BP diastolic 89–156
[2018-05-10] MEDS: CHLORDIAZEPOXIDE HCL 25 MG CAP PO SCH ×4 (06:00→18:21)
[2018-05-10] MEDS: SODIUM CHLORIDE 0.9% 1000ML 1,000 ML IV SCH ×3 (06:24→18:42)
[2018-05-10] MEDS: THIAMINE HCL 100 MG TAB PO SCH (08:52)
[2018-05-10] MEDS: FOLIC ACID 1 MG TAB PO SCH (08:52)
[2018-05-10] MEDS: PANTOPRAZOLE 40 MG 10ML VIAL IV SCH ×2 (08:52→18:42)
--- NOTE | 2018-05-10 16:13 | Progress Note ---
DATE: May 10, 2018 INTERNAL MEDICINE PROGRESS NOTE SUBJECTIVE: Patient is doing well. No significant complaints. PHYSICAL EXAM VITAL SIGNS: Blood pressure 164/112, heart rate 118 per minute, temperature 99 degree, heart rate 18 per minute, and oxygen saturation 100%. HEART: Regular rhythm. Normal S1, S2 sounds. LUNGS: Clear bilaterally. ABDOMEN: Soft. EXTREMITIES: Show no evidence of cyanosis or trauma. LABS: BMP; sodium 135, potassium 3.6, chloride 96, CO2 23, BUN 7, creatinine 0.85, glucose 147. CBC; white blood count 10.7, hemoglobin 13.5, hematocrit 37.8, and platelet count 86,000. AST 90 and ALT 65. Total bilirubin 1.6. Alkaline phosphatase 137. FINAL IMPRESSION 1. Pyelonephritis. 2. Alcohol withdrawal with delirium tremens. 3. Acute pancreatitis. 4. Hypertension. 5. Asthma. PLAN OF TREATMENT: Continue IV fluids 150 mL an hour, ceftriaxone 1 gram IV once a day, Zofran 4 mg IV q.4 hours as needed, atenolol 50 mg daily, clonidine 0.2 mg q.4 hours as needed for hypertension, Protonix 40 mg twice a day, lorazepam 1 mg IV q.6 hours as needed, Librium 50 mg q.6 hour, and folic acid 1 mg daily. Patient is tachycardic with the atenolol, that will improve along with hypertension also. Patient is going to be hopefully transferred out to the ICU. Dr. Angel of psychiatry has been seeing the patient. Dr. Serrano of gastroenterology has seen the patient, and Dr. Walt Garg also has seen the patient. Job#: [id number] IRVIN
[2018-05-10] MEDS ORDERED: ACETAMINOPHEN 325 MG TAB PO PRN (18:00)
[2018-05-10] MEDS: CEFTRIAXONE SOD 1 GM VIAL IV SCH (18:20)
[2018-05-10] MEDS: CLONIDINE HCL 0.2 MG TAB PO PRN (18:21)
[2018-05-11] VITALS (8 sets, daily range): BP systolic 133–163; BP diastolic 90–102
[2018-05-11] MEDS: SODIUM CHLORIDE 0.9% 1000ML 1,000 ML IV SCH (02:24)
[2018-05-11 05:58] LABS: BASOPHILS % 0.5 % (0.0-1.0); EOSINOPHILS # (AUTO) 0.1 (0.0-0.4); EOSINOPHILS % 1.9 % (0.0-6.0); HEMATOCRIT 35.1 % (38.2-49.6); HEMOGLOBIN 12.5 g/dL (14.0-18.0); LYMPHOCYTES # (AUTO) 0.6 (1.0-3.2); LYMPHOCYTES % 13.7 % (18.0-39.1); MEAN CORPUSCULAR HEMOGLOBIN 33.7 pg (28-32); MEAN CORPUSCULAR HGB CONC 35.6 g/dL (31-35); MEAN CORPUSCULAR VOLUME 94.6 fL (81-99); MONOCYTES # (AUTO) 0.5 (0.2-0.8); MONOCYTES % 11.3 % (4.4-11.3); NEUTROPHILS % 72.4 % (38.7-80.0); PLATELET COUNT 65 x10e3/uL (140-360); RED BLOOD COUNT 3.71 x10e6/uL (4.3-5.7); RED CELL DISTRIBUTION WIDTH 12.4 % (11.7-14.4)
[2018-05-11] MEDS: CHLORDIAZEPOXIDE HCL 25 MG CAP PO SCH ×5 (06:00→23:26)
[2018-05-11 06:25] LABS: ALANINE AMINOTRANSFERASE 64 IU/L (0-55); ALBUMIN 2.9 g/dL (3.5-5.0); ALBUMIN/GLOBULIN RATIO 0.7 (0.8-2.0); ALKALINE PHOSPHATASE 120 IU/L (40-150); ANION GAP 13.6 mmol/L (8-16); BLOOD UREA NITROGEN 7 mg/dL (7-26); BUN/CREATININE RATIO 9 (6-25); CALCIUM 9.4 mg/dL (8.4-10.2); CARBON DIOXIDE 22 mmol/L (22-29); CHLORIDE 98 mmol/L (98-107); CREATININE, SERUM 0.79 mg/dL (0.72-1.25); EST GLOMERULAR FILTRATION RATE > 60 ML/MIN (60-); GLUCOSE 119 mg/dL (74-118); SODIUM 131 mmol/L (136-145)
[2018-05-11 06:27] LABS: POTASSIUM 2.6 mmol/L (3.5-5.1)
[2018-05-11] MEDS ORDERED: POTASSIUM CHLORIDE 20 MEQ TAB CR PO STA (06:34)
[2018-05-11] MEDS ORDERED: POTASSIUM CHLORIDE 20 MEQ TAB CR PO SCH (07:45)
[2018-05-11] MEDS: ATENOLOL 50 MG TAB PO SCH (09:00)
[2018-05-11] MEDS: FOLIC ACID 1 MG TAB PO SCH (09:00)
[2018-05-11] MEDS: PANTOPRAZOLE 40 MG 10ML VIAL IV SCH (09:00)
[2018-05-11] MEDS: THIAMINE HCL 100 MG TAB PO SCH (09:00)
[2018-05-11] MEDS ORDERED: POTASSIUM CHLORIDE 20MEQ/15ML UDC NG ONE (09:30)
[2018-05-11 10:08] LABS: BAND NEUTROPHILS % (MANUAL) 13 %; LYMPHOCYTES % (MANUAL) 11 % (19-48); MONOCYTES % (MANUAL) 9 % (3.4-9.0); NEUTROPHILS % (MANUAL) 67 % (40-74)
[2018-05-11 10:09] LABS: PLATELET ESTIMATE SLIGHTLY DECREASED; PLATELET MORPHOLOGY COMMENT NORMAL; RBC MORPHOLOGY COMMENT NORMAL
--- NOTE | 2018-05-11 12:58 | Progress Note ---
DATE: May 11, 2018 INTERNAL MEDICINE PROGRESS NOTE SUBJECTIVE: Patient is sleeping comfortably. PHYSICAL EXAMINATION VITAL SIGNS: Blood pressure 163/82, temperature 98.3, heart rate 77 per minute, respiratory rate 18 per minute, oxygen saturation 99%. HEART: Shows regular rhythm. No murmur. No extra sounds. LUNGS: Clear bilaterally. ABDOMEN: Soft. EXTREMITIES: Show no evidence of cyanosis, edema, or trauma. BLOOD WORK: We have the following values. On the BMP; sodium 131, potassium 2.6, chloride 98, CO2 of 32, BUN 7, creatinine 0.79, and glucose 180. On the CBC; white blood count 4.15, hemoglobin 12.5, hematocrit 35.1, and platelet count 165,000. AST 105, ALT 64, total bilirubin 0.12, alkaline phosphatase 120. FINAL IMPRESSION 1. Pyelonephritis. 2. Alcohol withdrawal. 3. Alcoholic hepatitis. 4. Uncontrolled hypertension. 5. Asthma. 6. Chronic pancreatitis. PLAN OF TREATMENT: Continue with IV fluids at 150 mL an hour. Ceftriaxone 1 gram IV once a day. Zofran 4 mg IV q.4. as needed. Librium 50 mg q.6 hours. Thiamine 100 mg daily. Protonix 40 mg twice a day. Atenolol 50 mg daily. Lorazepam 1 mg q.4 hours as needed for anxiety. Clonidine 0.2 mg q.4 hours as needed for hypertension. Folic acid 1 mg daily. Tylenol 650 mg q.4 hours. We are going to also add Norvasc 5 mg daily because of hypertension. Potassium has been replaced. We are going to recheck the potassium at 3 p.m. today and we are going to recheck the magnesium level also. Psychiatry consult has been requested because of history of alcohol abuse also. Job#: [id number] MANDA
[2018-05-11] MEDS: CEFTRIAXONE SOD 1 GM VIAL IV SCH (20:21)
[2018-05-12] VITALS (8 sets, daily range): BP systolic 119–147; BP diastolic 80–103
[2018-05-12] MEDS: CHLORDIAZEPOXIDE HCL 25 MG CAP PO SCH ×3 (05:36→21:24)
[2018-05-12 06:06] LABS: BLOOD UREA NITROGEN 8 mg/dL (7-26); BUN/CREATININE RATIO 11 (6-25); CALCIUM 9.6 mg/dL (8.4-10.2); CARBON DIOXIDE 22 mmol/L (22-29); CHLORIDE 102 mmol/L (98-107); CREATININE, SERUM 0.75 mg/dL (0.72-1.25); EST GLOMERULAR FILTRATION RATE > 60 ML/MIN (60-); GLUCOSE 112 mg/dL (74-118); SODIUM 134 mmol/L (136-145)
[2018-05-12 06:09] LABS: MAGNESIUM 1.1 MG/DL (1.3-2.1)
[2018-05-12] MEDS ORDERED: MAGNESIUM SULFATE 2GM/50ML 50 ML IV SCH (07:00)
[2018-05-12] MEDS ORDERED: POTASSIUM CHLORIDE 10MEQ EA PO ONE (08:00)
[2018-05-12] MEDS ORDERED: MAGNESIUM SULFATE 2GM/50ML 50 ML IV ONE (08:30)
[2018-05-12] MEDS: AMLODIPINE BESYLATE 5 MG TAB PO SCH (09:18)
[2018-05-12] MEDS: ATENOLOL 50 MG TAB PO SCH (09:18)
[2018-05-12] MEDS: FOLIC ACID 1 MG TAB PO SCH (09:18)
[2018-05-12] MEDS: THIAMINE HCL 100 MG TAB PO SCH (09:18)
--- NOTE | 2018-05-12 10:05 | Progress Note ---
DATE: May 12, 2018 SUBJECTIVE: Mr. Shah is a 47-year-old man with history of severe alcohol dependence, history of hypertension, asthma, tobacco abuse, chronic pancreatitis, who came to the emergency room complaining of abdominal pain. Alcohol level was less than 10. Amylase and lipase were normal. CT scan showed chronic pancreatitis and acute pyelonephritis of the right kidney. Patient has been evaluated by urologist, GI. A psych consult was also requested due to alcohol withdrawal symptoms and to any post discharge plan with him regarding rehab. PHYSICAL EXAMINATION: GENERAL: Today, he is awake, kind of slow when he talks. VITAL SIGNS: Temperature is 98.4, blood pressure 147/103. HEART: Regular rate. LUNGS: Clear to auscultation. ABDOMEN: Soft. BLOOD WORK: Potassium is 3.0, creatinine is 0.75, glucose is 112. White cell is 4.15, hemoglobin is 12.5, hematocrit 35.1. ASSESSMENT: 1. Acute pyelonephritis. 2. Urinary tract infection with Escherichia coli. 3. Severe alcohol dependence. 4. Alcohol withdrawal symptoms. 5. Abdominal pain. 6. Chronic alcoholic pancreatitis. 7. Hypertension. 8. Asthma. 9. Tobacco use. 10. Hypokalemia. 11. Hypomagnesemia. PLAN: At present time is to replace potassium and magnesium. Continue to monitor electrolytes. Patient is going to go for a cystoscopy tomorrow. Continue Ativan for agitation and alcohol withdrawal symptoms. Librium was discontinued due to the liver problems. Continue IV antibiotics. Continue to monitor hemoglobin, white count, and mental status. All this was discussed with patient. All questions were answered to satisfaction. Job#: [id number]
--- NOTE | 2018-05-12 12:09 | Progress Note ---
DATE: May 12, 2018 PSYCHIATRIC PROGRESS NOTE SUBJECTIVE: Patient evaluated and events noted. INTERVAL HISTORY: Patient is now out of ICU. He is lying on his bed. He is somewhat drowsy, but easily arousable. He is oriented to situation. He is feeling less depressed and less anxious. He denies any hallucinations and/or any suicidal ideation. He is taking his medications and denies any side effects from his medications. ASSESSMENT 1. Adjustment disorder with mixed mood, depression, and anxiety. 2. Alcohol abuse. PLAN OF CARE 1. Reduce Librium to 50 mg p.o. q.8 hours and slowly taper off. 2. Continue Ativan 1 mg IV q.4 hours p.r.n. for agitation. 3. Add Zoloft 50 mg p.o. daily. 4. Recommended total abstinence from alcohol and drugs. 5. Supportive therapy during this inpatient stay. Job#: [id number] MARIPOSA
[2018-05-12] MEDS: CEFTRIAXONE SOD 1 GM VIAL IV SCH (21:24)
[2018-05-13] VITALS (10 sets, daily range): BP systolic 152–168; BP diastolic 98–112
[2018-05-13 05:59] LABS: ANION GAP 14.6 mmol/L (8-16); BLOOD UREA NITROGEN 10 mg/dL (7-26); BUN/CREATININE RATIO 11 (6-25); CALCIUM 9.7 mg/dL (8.4-10.2); CARBON DIOXIDE 21 mmol/L (22-29); CHLORIDE 106 mmol/L (98-107); CREATININE, SERUM 0.89 mg/dL (0.72-1.25); EST GLOMERULAR FILTRATION RATE > 60 ML/MIN (60-); GLUCOSE 113 mg/dL (74-118); MAGNESIUM 1.7 MG/DL (1.3-2.1); POTASSIUM 3.6 mmol/L (3.5-5.1); SODIUM 138 mmol/L (136-145)
[2018-05-13] MEDS: CHLORDIAZEPOXIDE HCL 25 MG CAP PO SCH ×2 (06:00→21:53)
[2018-05-13] MEDS: THIAMINE HCL 100 MG TAB PO SCH (09:32)
[2018-05-13] MEDS: FOLIC ACID 1 MG TAB PO SCH (09:32)
[2018-05-13] MEDS: ATENOLOL 50 MG TAB PO SCH (09:32)
[2018-05-13] MEDS: SERTRALINE HCL 50 MG TAB PO SCH (09:32)
[2018-05-13] MEDS: AMLODIPINE BESYLATE 5 MG TAB PO SCH (09:32)
--- NOTE | 2018-05-13 09:54 | Progress Note ---
DATE: May 13, 2018 SUBJECTIVE: Mr. Shah is a 47-year-old man with severe alcohol dependence, hypertension, asthma, tobacco abuse, chronic pancreatitis. He came to the emergency room complaining of abdominal pain. He was found to have acute pyelonephritis on the right kidney and chronic pancreatitis. He was seen by urologist and GI. He is going to go for cystoscopy today. Also, a psych evaluation was requested regarding the patient's alcohol dependence. PHYSICAL EXAMINATION GENERAL: He is awake and alert. VITAL SIGNS: Temperature is 98, blood pressure 152/108. HEART: Regular rate. LUNGS: Clear to auscultation. ABDOMEN: Soft. BLOOD WORK: Potassium is 3.6, creatinine is 0.89, glucose is 113. White cell is 4.15, hemoglobin is 12.5, hematocrit 35.1. ASSESSMENT AND PLAN 1. Acute pyelonephritis. 2. Urinary tract infection with Escherichia coli. 3. Severe alcohol dependence. 4. Alcohol withdrawal symptoms. 5. Abdominal pain. 6. Chronic alcoholic pancreatitis. 7. Hypertension. 8. Asthma. 9. Tobacco use. 10. Hypokalemia, resolved. 11. Hypomagnesemia, replaced. The plan at the present time is the patient is going to go for cystoscopy. Continue IV antibiotics. Continue Ativan and Librium for agitation. The patient was started on Zoloft. Continue alcohol abstinence as well as drug abstinence. All this was discussed with patient and . All questions were answered to satisfaction. Job#: [id number]
[2018-05-13] MEDS: CLONIDINE HCL 0.2 MG TAB PO PRN (12:04)
[2018-05-13] MEDS ORDERED: IOPAMIDOL 300MG/ML 50ML INFUS..BTL IV ONE (12:43)
--- NOTE | 2018-05-13 15:18 | Progress Note ---
DATE: May 13, 2018 PSYCHIATRIC PROGRESS NOTE SUBJECTIVE: Patient evaluated and events noted. OBJECTIVE: Upon evaluation today the patient's is also found to be in the room. She states that patient is somewhat drowsy but not confused. He is not having any hallucinations and/or any suicidal ideations. She does agree that patient is tolerating his other medications well and does agree that patient has to stay away from alcohol, but she was informed that patient is not motivated enough to stay sober after discharge. No hallucinations and/or any suicidal ideations reported. Patient claimed that he is tolerating his medications well. DIAGNOSES AXIS I 1. Adjustment disorder with mixed mood, depression and anxiety. 2. Alcohol abuse. PLAN OF CARE 1. Taper off Librium. 2. Continue p.r.n. Ativan. 3. Recommended total abstinence from alcohol and drugs. 4. Supportive therapy during his inpatient stay. Job#: [id number] EV
[2018-05-13] MEDS ORDERED: MIDAZOLAM HCL 2 MG/2 ML VIAL ONE (15:23)
[2018-05-13] MEDS ORDERED: FENTANYL CITRATE/PF 100MCG/2 ML INJ ONE (15:23)
[2018-05-13] MEDS: PHENAZOPYRIDINE HCL 100 MG TAB PO SCH (18:12)
[2018-05-13] MEDS ORDERED: LIDOCAINE HCL 2% LOCAL INJ 5 ML SDV VIAL INJ ONE (18:42)
[2018-05-13] MEDS ORDERED: PROPOFOL IV EMULSION 10 MG/ML 20 ML VIAL ONE (18:42)
[2018-05-13] MEDS ORDERED: SEVOFLURANE INHAL SOLN 250 ML PEN BTL ONE (18:42)
--- NOTE | 2018-05-13 20:03 | Progress Note ---
DATE: May 13, 2018 SUBJECTIVE: Patient reports no abdominal pain. He is tolerating oral feeds. Regular bowel movements. REVIEW OF SYSTEMS: GENERAL: No fever or chills. RESPIRATORY: No cough or expectoration. CVS: No chest pain, palpitation. MEDICATIONS: Reviewed, as per OCT. He is on ceftriaxone 1 gram IV q.24h. along with other medications. PHYSICAL EXAMINATION: VITAL SIGNS: Temperature 96.3, pulse 70, respirations 20, blood pressure 154/104 to 127/91, oxygen saturation 99% on room air. GENERAL: Not in any acute distress, lethargic, drowsy. HEENT: Oral mucosa is moist. Anicteric sclerae. ABDOMEN: Soft, nondistended, nontender. No palpable mass or hernia. No free fluid. Bowel sounds present. LABS: Electrolytes normal. BUN 10, creatinine 0.89. No liver enzymes done today. Urine culture growing E. coli. E. coli is sensitive to ceftriaxone. IMPRESSION: Alcoholic liver disease, high suspicion of cirrhosis with portal hypertension given low platelet count. PLAN: Continue antibiotic for urinary tract infection. Patient is being followed by urology service. He also underwent cystoscopy on this admission. Continue CIWA protocol. Patient is on Librium. Daily thiamine and folate. Patient should join Alcohol Anonymous program. He may need inpatient rehab for alcohol dependence. Outpatient followup in my office for further evaluation and workup for possible underlying alcoholic liver cirrhosis. Will continue to monitor him while he is in the hospital. Job#: [id number]
[2018-05-13] MEDS: CEFTRIAXONE SOD 1 GM VIAL IV SCH (21:15)
[2018-05-14] VITALS: BP 99/73
[2018-05-14 04:00] VITALS: BP 132/92
[2018-05-14 05:56] LABS: BASOPHILS % 0.8 % (0.0-1.0); EOSINOPHILS # (AUTO) 0.1 (0.0-0.4); EOSINOPHILS % 2.9 % (0.0-6.0); HEMATOCRIT 37.5 % (38.2-49.6); HEMOGLOBIN 12.9 g/dL (14.0-18.0); LYMPHOCYTES # (AUTO) 1.2 (1.0-3.2); LYMPHOCYTES % 30.7 % (18.0-39.1); MEAN CORPUSCULAR HGB CONC 34.4 g/dL (31-35); MEAN CORPUSCULAR VOLUME 98.9 fL (81-99); MONOCYTES # (AUTO) 0.8 (0.2-0.8); MONOCYTES % 22.4 % (4.4-11.3); NEUTROPHILS # (AUTO) 1.6 (2.1-6.9); NEUTROPHILS % 41.9 % (38.7-80.0); PLATELET COUNT 212 x10e3/uL (140-360); RED BLOOD COUNT 3.79 x10e6/uL (4.3-5.7); RED CELL DISTRIBUTION WIDTH 12.6 % (11.7-14.4)
[2018-05-14 06:31] LABS: ANION GAP 14.6 mmol/L (8-16); BLOOD UREA NITROGEN 11 mg/dL (7-26); BUN/CREATININE RATIO 12 (6-25); CARBON DIOXIDE 22 mmol/L (22-29); CHLORIDE 106 mmol/L (98-107); CREATININE, SERUM 0.92 mg/dL (0.72-1.25); EST GLOMERULAR FILTRATION RATE > 60 ML/MIN (60-); GLUCOSE 108 mg/dL (74-118); POTASSIUM 3.6 mmol/L (3.5-5.1); SODIUM 139 mmol/L (136-145)
[2018-05-14] MEDS: CHLORDIAZEPOXIDE HCL 25 MG CAP PO SCH ×2 (06:50→12:35)
[2018-05-14 08:15] VITALS: BP 141/98
[2018-05-14 09:45] VITALS: BP 141/98
[2018-05-14] MEDS: FOLIC ACID 1 MG TAB PO SCH (09:48)
[2018-05-14] MEDS: AMLODIPINE BESYLATE 5 MG TAB PO SCH (09:48)
[2018-05-14] MEDS: PHENAZOPYRIDINE HCL 100 MG TAB PO SCH ×2 (09:48→12:35)
[2018-05-14] MEDS: ATENOLOL 50 MG TAB PO SCH (09:49)
[2018-05-14] MEDS: SERTRALINE HCL 50 MG TAB PO SCH (09:49)
[2018-05-14] MEDS: THIAMINE HCL 100 MG TAB PO SCH (09:49)
--- NOTE | 2018-05-14 10:11 | Discharge Summary ---
Mr. Shah is a 47-year-old man with a history of severe alcohol dependence, hypertension, asthma, tobacco abuse, chronic pancreatitis, came to the emergency room with abdominal pain. He was found to have chronic pancreatitis and right acute pyelonephritis. He was seen by GI and urology. He had a cystoscopy done yesterday. It was clear. Urologist already cleared him. He was cleared by GI and psych. He may be able to go home. PHYSICAL EXAMINATION GENERAL: Today, he is awake. VITALS: Temperature is 97.6, blood pressure 141/98. HEART: Regular rate. LUNGS: Clear to auscultation. ABDOMEN: Soft. BLOOD WORK: Potassium is 3.6, creatinine is 0.92, glucose is 108. White count 3.75, hemoglobin is 12.9, hematocrit 35.5, and platelets 212,000. The urine culture shows UTI with E. coli. Abdominal and pelvic CT he had done on admission showed right pyelonephritis, steatosis, chronic pancreatitis. DISCHARGE DIAGNOSES 1. Acute right pyelonephritis. 2. Urinary tract infection with Escherichia coli. 3. Severe alcohol dependence. 4. Alcohol withdrawal symptoms, improving. 5. Abdominal pain. 6. Chronic alcoholic pancreatitis. 7. Hypertension. 8. Asthma. 9. Tobacco use. PLAN: At the present time, is to discharge the patient home if okay with all the consultants. He was started on Zoloft 50 mg once a day by psych. Wean off Librium. We are going to put him on Cipro 500 mg twice a day. He needs follow up as an outpatient with psychiatrist and also GI follow up for liver cirrhosis workup as an outpatient. He needs follow up with PCP in 1 week. I discussed several times with him and his how important it is that he needs total abstinence from alcohol and drugs. I also explained to him it will be very helpful if he joins [facility]. I also suggested supportive therapy as an outpatient. Risks and benefits were explained to the patient and . All questions were answered to satisfaction. CARLITA CONLEY MD Job#: [id number] RI
[2018-05-14 12:22] VITALS: BP 118/85
[2018-05-14] MEDS ORDERED: CIPRO500 MG PO (13:16)
[2018-05-14] MEDS ORDERED: ZOLOFT50 MG PO (13:16)
--- NOTE | 2018-05-14 13:59 | Progress Note ---
DATE: May 14, 2018 PSYCHIATRIC PROGRESS NOTE SUBJECTIVE: Patient evaluated and events noted. INTERVAL HISTORY: Patient is currently lying on his bed. He is calm and cooperative. His mood is less anxious and less depressed. He has been sleeping and eating fair. He denies any hallucinations and/or any suicidal ideation at this time. He appears to be motivated to stay sober after discharge. No behavioral problems reported. DIAGNOSIS AXIS 1 1. Adjustment disorder with mixed mood, depression and anxiety. 2. Alcohol abuse. PLAN OF CARE 1. Taper off Librium. 2. Continue p.r.n. Ativan. 3. Continue Zoloft for mood and anxiety. 4. Supportive therapy during his inpatient stay. Job#: [id number] EV
[2018-05-14] MEDS ORDERED: CHLORDIAZEPOXIDE HCL 25 MG CAP PO SCH (21:00)
--- OUTSIDE RECORDS SUMMARY | 2018-05-29 07:50 | XMS REPORT | Continuity of Care Document ---
Author Author [facility] Organization [facility] Address [address] [place] [address] Phone Unavailable Care Team Providers Care Admin Prog Coord Name Role Phone MADHU WILCOX MD PCP Insurance Providers Guarantor Rae Elena Address [address] [place] [address] Email [email or web address] [email or web address] Policy Number [id number] Subscriber's Name Connie Yancey Relationship 01 Group Number [id number] Group Name [employer] [facility] Effective Date 14 Advance Directives Directive Response Recorded Date/Time Does the patient have an advance directive? No 02/06/18 4:53pm If yes, is advance directive on file with [facility]? No 09/03/17 5:27am If not on file with [facility] will patient provide a copy? No 02/06/18 4:53pm Do you have a Directive to Physician? No 02/06/18 2:32pm Do you have a Medical Power of Earthmoving Labou[employer]? No 02/06/18 2:32pm Do you have an out of hospital Do Not Resuscitate Order? No 02/06/18 2:32pm Do you have any special needs we should be aware of? No 02/06/18 2:32pm Do you have a support person here with you today? Yes 02/06/18 2:32pm Did patient receive Notice of Privacy Practices? Yes 02/06/18 2:32pm Did patient receive patient rights and responsibilities? Yes 02/06/18 2:32pm Problems Medical Problem Onset Date Status Pancreatitis Unknown Medications Current Home Medications Medication Dose Units Route Directions Days Qty Instructions Start Date Acetaminophen 325 Mg/10 Ml Elix 650 Mg Oral Every 8 Hours as needed for Pain 14 Tab 05/23/15 Cephalexin Monohydrate (Keflex) 500 Mg Capsule 500 Mg Oral Every 12 Hours 10 02/07/18 Diazepam (Valium) 5 Mg Tablet 5 Mg Oral Use As Directed 22 Tab Take 5 mg PO BID (twice daily) x 7 days, then take 2.5 mg PO BID (twice daily) x 8 days. Then STOP. DO NOT TAKE WITH ALCOHOL- stop taking medication if taking alcohol. 05/23/15 Flovent 1 Spr Inhalation Daily Hydrochlorothiazide 12.5 Mg Capsule 12.5 Mg Oral Daily Labetalol 100 Mg Oral Twice A Day Losartan Potassium 25 Mg Tablet 50 Mg Oral Daily Metoclopramide Hcl (Reglan) 10 Mg Tablet 10 Mg Oral Every 6 Hours as needed for Nausea 20 Tab 05/23/15 Ventolin 1 [place] Inhalation As Needed Past Home Medications Medication Directions Ordered Status Acetaminophen (Tylenol) 500 Mg Tab, 500 Mg Oral As Needed Discontinued Albuterol Sulfate 2 Mg Tablet, 2 Mg Oral Every 6 Hours as needed Discontinued Allopurinol 300 Mg Tablet, 300 Mg Oral Daily Discontinued Chlordiazepoxide Hcl 10 Mg Capsule, 10 Mg Oral Three Times A Day Discontinued Chlordiazepoxide Hcl 10 Mg Capsule, 10 Mg Oral Discontinued Fluoxetine Hcl 40 Mg Capsule, 40 Mg Oral Daily Discontinued Folic Acid 1 Mg Tablet, 1 Mg Oral Daily Discontinued Hydrocodone Bit/Acetaminophen (Vicodin 5-500 Tablet) 1 Each Tablet, 1 Each Oral Every 4 Hours as needed Discontinued Lisinopril 40 Mg Tablet, 40 Mg Oral Daily Discontinued Lorazepam , 0.5 Mg Oral As Needed Discontinued Metoprolol Tartrate (Lopressor) 100 Mg Tablet, 100 Mg Oral Twice A Day Discontinued Sertraline Hcl 100 Mg Tablet, 100 Mg Oral Daily Discontinued Thiamine Hcl 100 Mg Tablet, 100 Mg Oral Daily Discontinued Social History Social History Problem Response Recorded Date/Time Onset Date Status Hx Psychiatric Problems No 02/06/2018 4:53pm Not Applicable Not Applicable Hx Eating Disorder No 02/06/2018 4:53pm Not Applicable Not Applicable Hx Substance Use Disorder No 02/06/2018 4:53pm Not Applicable Not Applicable Hx Depression No 02/06/2018 4:53pm Not Applicable Not Applicable Hx Alcohol Use No 02/06/2018 4:53pm Not Applicable Not Applicable Hx Substance Use Treatment No 02/06/2018 4:53pm Not Applicable Not Applicable Hx Physical Abuse No 02/06/2018 4:53pm Not Applicable Not Applicable Smoking Status Start Date Stop Date Never Smoker Hospital Discharge Instructions No hospital discharge instruction information available. Plan of Care Discharge Date 02/07/18 10:16am Disposition HOME, SELF-CARE Instructions/Education Provided Hyponatremia Prescriptions See Medication Section Referrals pcp (Internal Medicine) Order Date: 5-7 Days Entered Date: 02/07/2018 7:04am Functional Status Query Response Date Recorded Ambulation Ability Maximum Assistance February 06, 2018 5:00pm Toileting Ability Minimum Assistance February 06, 2018 5:00pm Allergies, Adverse Reactions, Alerts Allergen Type Severity Reaction Status Last Updated Sulfa (Sulfonamide Antibiotics) Allergy Unknown Active 02/06/18 Lorazepam Allergy Mild COMBATIVE/AGITATED Active 02/06/18 Immunizations No immunization information available. Vital Signs Acute Vital Signs Vital Response Date/Time Temperature (Fahrenheit) 96.5 degrees F (97.6 - 99.5) 02/07/2018 8:00am Pulse Pulse Rate (adult) 86 bpm (60 - 90) 02/07/2018 8:00am Respiratory Rate 16 bpm (12 - 24) 02/07/2018 8:00am Blood Pressure 170/97 mm Hg 02/07/2018 8:00am Height 5 ft 9 in 02/06/2018 2:30pm Weight 149 lb 02/07/2018 12:00am Body Mass Index 22.0 kg/m^2 02/07/2018 12:00am Results Laboratory Results Test Name Result Units Flags Reference Collection Date/Time Result Date/ Time Comments Percent Reticulocyte Count 2.1 % 0.8-2.2 09/04/2017 6:09/04/2017 10:23pm Iron Level 168 ug/dL 65-175 09/04/2017 6:09/04/2017 10:43pm Total Iron Binding Capacity 192 ug/dL L 261-478 09/04/2017 6:2017 10:43pm Percent Iron Saturation 88 % H 15-50 09/04/2017 6:09/04/2017 10: 43pm Transferrin 137 mg/dL L 174-364 09/04/2017 6:09/04/2017 10:43pm Ferritin 948.02 ng/mL H 21.81-274.66 09/04/2017 6:09/04/2017 10: 57pm Total Bilirubin 2.3 mg/dL H 0.2-1.2 09/05/2017 6:09/05/2017 6:49am Aspartate Amino Transf (AST/SGOT) 134 IU/L H 5-34 09/05/2017 6:06/2018 6:49am Alanine Aminotransferase (ALT/SGPT) 50 IU/L 0-55 09/05/2017 6:06/2018 6:49am Total Protein 7.2 g/dL 6.5-8.1 09/05/2017 6:09/05/2017 6:49am Albumin 3.3 g/dL L 3.5-5.0 09/05/2017 6:09/05/2017 6:49am Globulin 3.9 g/dL H 2.3-3.5 09/05/2017 6:09/05/2017 6:49am Albumin/Globulin Ratio 0.8 0.8-2.0 09/05/2017 6:09/05/2017 6: 49am Alkaline Phosphatase 154 IU/L H 40-150 09/05/2017 6:09/05/2017 6: 49am Amylase Level 53 U/L 25-125 09/06/2017 6:09/06/2017 6:54am Lipase 62 U/L 8-78 09/06/2017 6:09/06/2017 6:54am CA 19-9 Antigen 181 U/mL H 0-35 09/05/2017 6:09/06/2017 6:01am [place] ECLIA methodology Performed at: [facility] [address] [id number] Stock Clerk: Aj Rawls MD, Phone: [phone] White Blood Count 7.89 x10e3/uL 4.8-10.8 02/07/2018 5:40am 02/07/2018 6 :33am Red Blood Count 3.53 x10e6/uL L 4.3-5.7 02/07/2018 5:40am 02/07/2018 6: 33am Hemoglobin 12.0 g/dL L 14.0-18.0 02/07/2018 5:4002/07/2018 6:33am Hematocrit 32.6 % L 38.2-49.6 02/07/2018 5:40am 02/07/2018 6:33am Mean Corpuscular Volume 92.4 fL 81-99 02/07/2018 5:40am 02/07/2018 6: 33am Mean Corpuscular Hemoglobin 34.0 pg H 28-32 02/07/2018 5:40am 2017 6:33am Mean Corpuscular Hemoglobin Concent 36.8 g/dL H 31-35 02/07/2018 5:40am 02/07/2018 6:33am Red Cell Distribution Width 12.3 % 11.7-14.4 02/07/2018 5:402017 6:33am Platelet Count 132 x10e3/uL L 140-360 02/07/2018 5:40am 02/07/2018 6: 33am Neutrophils (%) (Auto) 75.6 % 38.7-80.0 02/07/2018 5:4002/07/2018 6: 33am Lymphocytes (%) (Auto) 9.9 % L 18.0-39.1 02/07/2018 5:4002/07/2018 6: 33am Monocytes (%) (Auto) 13.3 % H 4.4-11.3 02/07/2018 5:4002/07/2018 6: 33am Eosinophils (%) (Auto) 0.0 % 0.0-6.0 02/07/2018 5:4002/07/2018 6: 33am Basophils (%) (Auto) 0.4 % 0.0-1.0 02/07/2018 5:40am 02/07/2018 6:33am IM GRANULOCYTES % 0.8 % 0.0-1.0 02/07/2018 5:4002/07/2018 6:33am Neutrophils # (Auto) 6.0 2.1-6.9 02/07/2018 5:40am 02/07/2018 6:33am Lymphocytes # (Auto) 0.8 L 1.0-3.2 02/07/2018 5:4002/07/2018 6: 33am Monocytes # (Auto) 1.1 H 0.2-0.8 02/07/2018 5:4002/07/2018 6:33am Eosinophils # (Auto) 0.0 0.0-0.4 02/07/2018 5:4002/07/2018 6:33am Basophils # (Auto) 0.0 0.0-0.1 02/07/2018 5:4002/07/2018 6:33am Absolute Immature Granulocyte (auto 0.06 x10e3/uL 0-0.1 02/07/2018 5: 4002/07/2018 6:33am Urine Color YELLOW YELLOW 02/06/2018 3:30am 02/06/2018 4:21pm Urine Clarity SL CLOUDY H CLEAR 02/06/2018 3:3002/06/2018 4:21pm Urine Specific [place] 1.005 L 1.010-1.025 02/06/2018 3:302017 4:21pm Urine pH 6 5 - 7 02/06/2018 3:3002/06/2018 4:21pm Urine Leukocyte Esterase 2+ H NEGATIVE 02/06/2018 3:3002/06/2018 4: 21pm Urine Nitrite NEGATIVE NEGATIVE 02/06/2018 3:30am 02/06/2018 4:21pm Urine Protein NEGATIVE NEGATIVE 02/06/2018 3:30am 02/06/2018 4:21pm Urine Glucose (UA) NEGATIVE NEGATIVE 02/06/2018 3:30am 02/06/2018 4: 21pm Urine Ketones NEGATIVE NEGATIVE 02/06/2018 3:30am 02/06/2018 4:21pm Urine Urobilinogen 0.2 mg/dL 0.2 - 1 02/06/2018 3:30am 02/06/2018 4: 21pm Urine Bilirubin NEGATIVE NEGATIVE 02/06/2018 3:30am 02/06/2018 4: 21pm Urine Blood 4+ H NEGATIVE 02/06/2018 3:3002/06/2018 4:21pm Urine WBC >50 /HPF H 0-5 02/06/2018 3:30am 02/06/2018 4:31pm Urine RBC >50 /HPF H 0-5 02/06/2018 3:30am 02/06/2018 4:31pm Urine Bacteria MANY /HPF H NONE 02/06/2018 3:30am 02/06/2018 4:31pm Urine Epithelial Cells NONE /LPF NONE 02/06/2018 3:30am 02/06/2018 4: 31pm Sodium Level 131 mmol/L # L 136-145 02/07/2018 5:40am 02/07/2018 6:41am Potassium Level 4.7 mmol/L # 3.5-5.1 02/07/2018 5:40am 02/07/2018 6:41am Chloride Level 96 mmol/L L 98-107 02/07/2018 5:40am 02/07/2018 6:41am Carbon Dioxide Level 24 mmol/L 22-29 02/07/2018 5:40am 02/07/2018 6: 41am Anion Gap 15.7 mmol/L 8-16 02/07/2018 5:40am 02/07/2018 6:41am Blood Urea Nitrogen 7 mg/dL 7-02/07/2018 5:40am 02/07/2018 6:41am Creatinine 0.70 mg/dL L 0.72-1.25 02/07/2018 5:40am 02/07/2018 6:41am BUN/Creatinine Ratio 10 6-02/07/2018 5:40am 02/07/2018 6:41am Estimat Glomerular Filtration Rate > 60 ML/MIN 60- 02/07/2018 5:40am 6:41am Ranges were taken from the National Kidney Disease Education Program and the National Kid[employer] Foundation literature. Reference ranges: 60 or greater: Normal 16-59 (for 3 consecutive months): Chronic kidney disease 15 or less: Kidney failure Glucose Level 110 mg/dL 74-118 02/07/2018 5:40am 02/07/2018 6:41am Calcium Level 9.1 mg/dL 8.4-10.2 02/07/2018 5:40am 02/07/2018 6:41am Phosphorus Level 3.2 MG/DL 2.3-4.7 02/07/2018 5:40am 02/07/2018 6:56am Magnesium Level 1.4 MG/DL 1.3-2.1 02/07/2018 5:40am 02/07/2018 6:56am Creatine Kinase 19 IU/L L 30-200 02/07/2018 5:40am 02/07/2018 6:31am Creatine Kinase MB 0.30 ng/mL 0-5.0 02/07/2018 5:40am 02/07/2018 6: 40am Troponin I < 0.001 ng/mL 0-0.300 02/07/2018 5:40am 02/07/2018 6:40am Ethyl Alcohol Level < 10.0 mg/dL 0.0-10.0 02/06/2018 11:10pm 2017 11:42pm Microbiology Results Procedure Source Organism/Result Collection Date/Time Result Date/Time Result Status Urine Culture Urine,Clean Catch GRAM NEGATIVE DEONTE 02/06/2018 3:30am 2017 9:34am Preliminary Procedures Procedure Status Date Provider(s) Computed tomography of abdomen and pelvis with contrast Active 09/02/17 RAE GARRETT RUST PROOFER X-ray of chest, single view Active 09/02/17 RAE GARRETT RUST PROOFER Magnetic resonance cholangiopancreatography (MRCP) without then with contrast Active 09/03/17 JAIRON GONZALEZ MD Magnetic resonance cholangiopancreatography (MRCP) without then with contrast Active 10/11/17 JAIRON GONZALEZ MD Magnetic resonance imaging of lumbar spine without contrast Active 01/01/18 MADHU WILCOX MD, ABIM MRI pelvis wo contrast Active 01/01/18 MADHU WILCOX MD, ABIM Encounters Encounter Location Arrival/Admit Date Discharge/Depart Date Attending Provider Discharged Inpatient (obs) [facility] 02/06/18 3:48pm 10:16am CAMI TIWARI MD Registered Clinic [facility] 01/01/18 2:46pm MADHU WILCOX MD Registered Clinic [facility] 10/11/17 3:25pm JAIRON GONZALEZ MD Discharged Inpatient [facility] 09/03/17 12:59am 7:56pm CARLITA CONLEY MD
--- NOTE | 2018-07-08 01:14 | Operative Report ---
DATE OF PROCEDURE: May 13, 2018 PREOPERATIVE DIAGNOSES 1. Urinary tract infection. 2. Microhematuria. POSTOPERATIVE DIAGNOSES 1. Urinary tract infection. 2. Microhematuria. 3. Urethral stricture disease. OPERATIONS PERFORMED 1. Cystourethroscopy with dilation and calibration of urethral stricture (separate procedure performed for diagnosis of the stricture). 2. Cystourethroscopy with bilateral ureteral catheterization and retrograde ureteropyelography (separate procedure performed for the urinary tract infections). 3. Interpretation of retrograde ureteropyelography. 4. Supervision of fluoroscopy, no radiologist present. ANESTHESIA: General. COMPLICATIONS: None. CLINICAL SUMMARY: Yunior Shah is a 47-year-old man. Please refer to consultation dictation from the same hospitalization. OPERATIVE PROCEDURE IN DETAIL: Informed consent was verified. Yunior Shah was properly identified, taken to the operating room, placed on the cystoscopy table in supine position. Anesthesia was uneventfully begun. Patient was then carefully and gently re-positioned in dorsal lithotomy position with all pressure points well padded. His genitalia were prepared and draped in usual sterile fashion. The 22.5-[place] cystoscope sheath with a visual obturator in place was atraumatically inserted in the patient's urethra. It was guided down the normal distal urethra to the bulbar region where I identified a stricture. We dilated across this stricture which was relatively short utilizing the visual obturator and the scope as we dilated to 22.5-[place] in size. We passed a normal sphincteric region, went through the normal prostate bed and into the patient's bladder where panendoscopy revealed no suspicious mucosal lesions, no tumors, no stones, and no diverticula. Grade 1 trabeculations were noted. An 8-[place] catheter was used to cannulate each ureter and retrograde ureteropyelograms were performed. Interpretation of retrograde ureteropyelography: Contrast was instilled in retrograde fashion bilaterally. There were no tumors, no stones, and no diverticula. Unobstructed drainage was observed bilaterally fluoroscopically. The patient's bladder was then drained. Cystoscope was withdrawn and the patient was uneventfully reversed from anesthesia and taken to the recovery room in stable condition. Explicit postoperative instructions were given and the patient may follow up in the office in several months. Job#: [id number]
== END 2018-05-14 15:15 | disposition home or self-care (01) | DRG 689 ==
LOC: ER 17:36 → ERHOLD 21:08 → ICU 23:35 → MED/SURG3 05-10 15:51
PROVIDERS: ADMIT Internal Medicine; ATTEND Internal Medicine
PROC: 0T7D8ZZ Dilation of Urethra, Via Natural or Artificial Opening Endoscopic (ICD-10-PCS; 2018-05-13)
PROC: BT141ZZ Fluoroscopy of Kidneys, Ureters and Bladder using Low Osmolar Contrast (ICD-10-PCS; 2018-05-13)
PROC: BT14ZZZ Fluoroscopy of Kidneys, Ureters and Bladder (ICD-10-PCS; principal; 2018-05-13 13:07)
DX: N10 Acute pyelonephritis (principal); K85.20 Alcohol induced acute pancreatitis without necrosis or infection; E87.1 Hypo-osmolality and hyponatremia; F10.231 Alcohol dependence with withdrawal delirium; N13.30 Unspecified hydronephrosis; B96.89 Other specified bacterial agents as the cause of diseases classified elsewhere; E86.0 Dehydration; I10 Essential (primary) hypertension; Y90.0 Blood alcohol level of less than 20 mg/100 ml; Z72.0 Tobacco use; Z88.2 Allergy status to sulfonamides; J45.909 Unspecified asthma, uncomplicated; F43.23 Adjustment disorder with mixed anxiety and depressed mood; R31.29 Other microscopic hematuria; N50.0 Atrophy of testis; R93.41 Abnormal radiologic findings on diagnostic imaging of renal pelvis, ureter, or bladder; B96.20 Unspecified Escherichia coli [E. coli] as the cause of diseases classified elsewhere; E87.6 Hypokalemia; E83.42 Hypomagnesemia; K70.30 Alcoholic cirrhosis of liver without ascites; D64.9 Anemia, unspecified; N35.9 Urethral stricture, unspecified
CPT/HCPCS: 36415; 74177; 74420; 80048; 80053; 81001; 82150; 83690; 83735; 84132; 85025; 87040; 87086; 87186; 99285; J0696; J2001; J2250; J3411; J3475; J7030; Q9967